=== PATIENT | female | born 2000 | race Caucasian/White ===

== ENCOUNTER 2023-12-24 17:46 | Emergency (ER) | payer MEDICAID, SELFPAY ==
[2023-12-24 17:48] VITALS: BP 115/83; PULSE 104; RESP 16; TEMP 35.7; O2SAT 99; BMI 33.9
--- NOTE | 2023-12-24 19:00 | US_ITS ---
EXAM: US SECOND OR THIRD TRIMESTER , TRANSABDOMINAL CLINICAL INDICATION: bleeding in TECHNIQUE: Transabdominal obstetrical ultrasound of the maternal pelvis and a second or third trimester with image documentation. COMPARISON: No relevant prior studies available. FINDINGS: FETUS: There is an intrauterine gestation. HEART RATE: heart rate is 155 bpm. PRESENTATION: The fetus is in cephalic infiltration. PLACENTA: Placenta is posterior. No placenta previa. No abruption. AMNIOTIC FLUID: Unremarkable. ANATOMY: See below. BIOMETRICS GESTATIONAL AGE: Gestational age 15 weeks 1 day. MARGOTH: Estimated date of delivery by ultrasound is 06/15/2024. EFW: Estimated weight 109 g. BPD: Biparietal diameter is 3.0 cm age 15 weeks 4 days, 66th percentile. HC: Head circumference 11.5 cm age 15 weeks 4 days, 57th percentile. AC: Abdominal circumference 8.5 cm age 14 weeks 6 days, 42nd percentile. FL: Femur length 1.6 cm age 14 weeks 6 days, 32nd percentile. MATERNAL: UTERUS: Unremarkable. No myometrial mass. CERVIX: Unremarkable as visualized. The cervix is closed. ADNEXA: Unremarkable. No adnexal masses. FREE FLUID: None. US/OB Limited With Biometrics IMPRESSION: Intrauterine gestation with an average ultrasound age of 15 weeks 2 days and ultrasound estimated due date of 06/14/2024. heart rate is 155 bpm. Electronically Signed: Javon Garrett MD at 19:57 EST ,
--- NOTE | 2023-12-24 19:15 | ED.VIS.FEGU ---
HPI <ABHIJIT Julien - Last Filed: 12/24/23 21:37> HPI - Female History of Present Illness Chief Complaint: Vag Bld, Preg Narrative Narrative: 22-year-old female A2 is approximately 15 weeks and 2 hours ago developed lower abdominal cramping and pink spotting when she wipes with toilet paper. She states she is otherwise not bleeding and has not had to wear a panty liner or pad. No fever, chills, nausea or vomiting, dysuria or vaginal discharge. She has 2 prior first trimester miscarriages. During this she had an episode of heavy bleeding and has had 2 normal ultrasounds. She states today's pink tinge is very light compared to that. She has an [facility]EL [facility]ATER in [place] but moved to [place] 2 weeks ago and would like to establish with someone here. PFSH <ABHIJIT Julien - Last Filed: 12/24/23 21:37> PFS Medical History Anxiety Asthma Bipolar disorder Depression Migraines Miscarriage Smoker Home Medications docosahexaenoic acid 200 mg capsule ( DHA) 200 mg PO DAILY 12/24/23 [History Last Taken Unknown] Allergy/AdvReac Type Severity Reaction Status Date / Time No Known Allergies Allergy Verified 12/24/23 17:49 Surgical History (Updated 12/24/23 @ 21:23 by Myah Tatum) H/O adenoidectomy Social History Smoking Status: Current every day smoker tobacco type: e-cigarettes ROS <ABHIJIT Julien - Last Filed: 12/24/23 21:37> ROS ED ROS Narrative Constitutional: Negative for fever, chills, malaise. CVS: Negative for chest pain, syncope. Respiratory: Negative for shortness of breath. GI: Positive for abdominal cramping. No nausea, vomiting. : Negative for dysuria, frequency. EXAM <ABHIJIT Julien Last Filed: 12/24/23 21:37> Physical Exam Narrative Exam Narrative: CONST: Patient sitting in no acute distress. EYES: Normal inspection. NECK: Normal inspection. RESP: No respiratory distress, CTAB. CVS: Regular rate and rhythm, no murmur, no gallop. ABD: Soft and nontender, no guarding or rebound, nondistended. SKIN: Color normal, no rash, warm, dry, intact. EXTREMITIES: Normal appearance, no pedal edema. NEURO: Oriented x4. PSYCH: Normal affect. Const Vital Signs: 12/24/23 17:48 12/24/23 20:04 Temperature 96.3 F L 98.6 F Temperature Source Temporal Oral Pulse Rate 104 H 83 Respiratory Rate 16 16 Blood Pressure 115/83 H 119/76 Blood Pressure Mean 93 90 Pulse Ox 99 98 Oxygen Delivery Method Room Air Room Air <Dr. Danyel Riley DO - Last Filed: 12/24/23 22:03> Physical Exam Const Vital Signs: 12/24/23 17:48 12/24/23 20:04 Temperature 96.3 F L 98.6 F Temperature Source Temporal Oral Pulse Rate 104 H 83 Respiratory Rate 16 16 Blood Pressure 115/83 H 119/76 Blood Pressure Mean 93 90 Pulse Ox 99 98 Oxygen Delivery Method Room Air Room Air MDM <ABHIJIT Julien - Last Filed: 12/24/23 21:37> [facility] MDM Narrative Medical decision making narrative: History gathered from: Patient and parent Patient is approximately 15 weeks and has lower abdominal cramping and light pink spotting. She has already had confirmed IUP. She appears well and nontoxic and is stable vital signs. Abdomen is soft and nontender. CBC and BMP are within normal limits. Hemoglobin is 12.9. hCG quant is 41,998. Blood type is B+ so she does not need RhoGAM. UA is negative for infection. Transabdominal ultrasound shows IUP at 15 weeks, 2 days with heart rate of 155 bpm. I discussed the case with on-call [facility] who states there is no further emergent intervention and recommended pelvic rest and follow-up with their office next week. Patient was comfortable with this plan and discharged in stable condition. Lab Data Attestation: I reviewed the patient's lab results. Labs: Laboratory Results - last 24 hr 12/24/23 12/24/23 19:45 19:55 WBC 10.2 RBC 4.70 Hgb 12.9 Hct 40.5 MCV 86.2 MCH 27.4 MCHC 31.9 L RDW Std Deviation 41.7 RDW Coeff of José 13.4 Plt Count 369 MPV 10.3 Immature Gran % (Auto) 0.500 Neut % (Auto) 64.9 Lymph % (Auto) 25.9 Marathon % (Auto) 7.5 Eos % (Auto) 0.8 Baso % (Auto) 0.4 Absolute Neuts (auto) 6.6 Absolute Lymphs (auto) 2.65 Nucleated RBC % 0 Sodium 141 Potassium 3.8 Chloride 112 H Carbon Dioxide 23.0 Anion Gap 6 BUN 8 Creatinine 0.54 L Estim Creat Clear Calc 165.72 Est GFR (MDRD) Af Amer 182 Est GFR (MDRD) Non-Af 150 BUN/Creatinine Ratio 14.8 Glucose 82 Calcium 9.7 HCG, Quant 11186 H Urine Color Yellow Urine Clarity Sl. Cloudy Urine pH 6.0 Ur Specific Wilton 1.025 Urine Protein Negative Urine Glucose (UA) Normal Urine Ketones 5 H Urine Occult Blood Negative Urine Nitrite Negative Urine Bilirubin Negative Urine Urobilinogen Normal Ur Leukocyte Esterase 25 H Urine RBC 0 SEEN Urine WBC 0-5 SEEN Ur Squamous Epith Cells 0-5 SEEN Urine Bacteria 1+ Urine Mucus RARE Blood Type B POSITIVE Radiography Diagnostic Testing: Clinical Impression(s) from Imaging Studies Obstetrics Ultrasound 12/24/23 19:00 IMPRESSION: Intrauterine gestation with an average ultrasound age of 15 weeks 2 days and ultrasound estimated due date of 06/14/2024. heart rate is 155 bpm. Electronically Signed: Javon Garrett MD at 19:57 EST , <Dr. Danyel Riley, DO - Last Filed: 12/24/23 22:03> [facility] Lab Data Labs: Laboratory Results - last 24 hr 12/24/23 12/24/23 19:45 19:55 WBC 10.2 RBC 4.70 Hgb 12.9 Hct 40.5 MCV 86.2 MCH 27.4 MCHC 31.9 L RDW Std Deviation 41.7 RDW Coeff of José 13.4 Plt Count 369 MPV 10.3 Immature Gran % (Auto) 0.500 Neut % (Auto) 64.9 Lymph % (Auto) 25.9 Marathon % (Auto) 7.5 Eos % (Auto) 0.8 Baso % (Auto) 0.4 Absolute Neuts (auto) 6.6 Absolute Lymphs (auto) 2.65 Nucleated RBC % 0 Sodium 141 Potassium 3.8 Chloride 112 H Carbon Dioxide 23.0 Anion Gap 6 BUN 8 Creatinine 0.54 L Estim Creat Clear Calc 165.72 Est GFR (MDRD) Af Amer 182 Est GFR (MDRD) Non-Af 150 BUN/Creatinine Ratio 14.8 Glucose 82 Calcium 9.7 HCG, Quant 53838 H Urine Color Yellow Urine Clarity Sl. Cloudy Urine pH 6.0 Ur Specific Wilton 1.025 Urine Protein Negative Urine Glucose (UA) Normal Urine Ketones 5 H Urine Occult Blood Negative Urine Nitrite Negative Urine Bilirubin Negative Urine Urobilinogen Normal Ur Leukocyte Esterase 25 H Urine RBC 0 SEEN Urine WBC 0-5 SEEN Ur Squamous Epith Cells 0-5 SEEN Urine Bacteria 1+ Urine Mucus RARE Blood Type B POSITIVE Radiography Diagnostic Testing: Clinical Impression(s) from Imaging Studies Obstetrics Ultrasound 12/24/23 19:00 IMPRESSION: Intrauterine gestation with an average ultrasound age of 15 weeks 2 days and ultrasound estimated due date of 06/14/2024. heart rate is 155 bpm. Electronically Signed: Javon Garrett MD at 19:57 EST , Treatment and Re-Evaluation Narrative: ED attending note: I evaluated the patient in conjunction with the ZARA. I agree with his/her statements and above findings. I have personally performed a face to face assessment of the patient and have reviewed the ZARA Note. I performed a substantive portion of the visit including all aspects of the following. I personally saw the patient performed chart review, physical exam, reviewed labs, imaging (if obtained), and formulated a treatment and management plan. This note was generated with [employer] dictation software. It may contain incorrect words, spelling, and punctuation that were not noted in review of the chart prior to signing. Discharge Plan Triage Chief Complaint: Vag Bld, Preg ED Midlevel Provider: Vivi Barton ED Provider: Danyel Riley Dx/Rx/DC Orders Clinical Impression: Threatened miscarriage Instructions: Miscarriage Threatened Prescriptions: No Action DHA 200 mg capsule 200 mg PO DAILY Primary Care Provider: Care Physician,No Primary Referrals: Amie Buck MD [Med Staff - Active Staff] - NOT,DEFINED [Non-Staff] - Activity Restrictions/Additional Instructions: Today your ultrasound showed a 15-week, 2-day with a normal heartbeat. Whenever you have bleeding during this is called a threatened miscarriage which means if you continue to have significant bleeding you could develop a miscarriage. Take Tylenol as needed for pain and have pelvic rest which means do not insert anything into the vagina such as a tampon or having sex. Please call the [facility] office for an appointment. Disposition Disposition: Home, Self Care
[2023-12-24 19:53] LABS: Absolute Lymphocyte Count 2.65 X10^3/uL (0.83-4.51); Absolute Neutrophil Count 6.6 X10^3/uL (2.0-7.7); Basophil# 0.04 X10^3/uL; Basophil% 0.4 % (0-1); Eosinophil# 0.08 X10^3/uL; Eosinophils% 0.8 % (0-5); Hematocrit 40.5 % (37-47); Hemoglobin 12.9 g/dL (12.0-15.0); Lymphocyte # 2.65 X10^3/ul (0.83-4.51); Lymphocyte % 25.9 % (19-41); Mean Corp Hgb Conc 31.9 g/dL (32-36); Mean Corpuscular Hgb 27.4 pg (27.0-32.0); Mean Corpuscular Volume 86.2 fL (81-99); Mean Platelet Vol. 10.3 fl (6.2-12.0); Monocyte# 0.77 X10^3/uL; Monocyte% 7.5 % (0-10); NRBC Flagged by Analyzer 0 % (0-5); Neutrophil # 6.64 X10^3/uL (2.7-7.7); Neutrophil % 64.9 % (47-70); Platelet Count 369 K/mm3 (150-450); RBC Distribution Width CV 13.4 % (11.6-14.6); RBC Distribution Width SD 41.7 fl (35.1-43.9); White Blood Count 10.2 K/mm3 (4.4-11.0)
[2023-12-24 20:02] LABS: Red Blood Cells-Urine 0 SEEN /hpf (0-5)
[2023-12-24 20:04] VITALS: BP 119/76; PULSE 83; RESP 16; TEMP 37; O2SAT 98
[2023-12-24 20:04] LABS: Color, Urine Yellow (Yellow); Glucose, Dipstick Normal (Normal); Ketone-Dipstick 5 mg/dl (Negative); Leukocyte Esterase-Dipstick 25 /ul (Negative); Nitrite-Dipstick Negative (Negative); Occult Blood-Urine Negative /ul (Negative); Protein-Dipstick Negative (Negative); Specific Gravity, Urine 1.025 (1.002-1.030); Urine Bilirubin Dipstick Negative (Negative); Urine Clarity Sl. Cloudy (Clear); Urine Urobilinogen Normal (Normal)
[2023-12-24 20:10] LABS: Anion Gap 6 (5-15); BUN 8 mg/dL (7-18); BUN/Creat Ratio 14.8 RATIO (10-20); Calcium,Total 9.7 mg/dL (8.5-10.1); Chloride 112 mmol/L (98-107); Creatinine, Serum 0.54 mg/dL (0.55-1.02); EST Glomerular Filtration Rate 150 mL/min (>60); Est Glom Filt Rate - Afr Amer 182 mL/min (>60); Estimated Creatinine Clearance 165.72 ml/min; Glucose 82 mg/dL (74-106); Potassium 3.8 mmol/L (3.5-5.1); Sodium Level 141 mmol/L (136-145)
[2023-12-24 20:40] LABS: hCG Titer Quant., Serum 41998 mIU/mL (1-3)
[2023-12-24 20:48] LABS: Bacteria 1+ /hpf (None Seen); Squamous Epithelial Cells - UA 0-5 SEEN /hpf (5-10); White Blood Cells 0-5 SEEN /hpf (0-5)
[2023-12-24 20:49] LABS: Mucous, Urine RARE /hpf (<or=2+)
[2023-12-24 21:42] VITALS: BP 120/76; PULSE 64; RESP 12; TEMP 36.4; O2SAT 99
== END 2023-12-24 21:44 | disposition home or self-care (01) ==
PROVIDERS: Physician Assistant; Emergency Provider Emergency Medicine; Visit Provider Emergency Medicine
DX: O20.0 Threatened abortion (principal); O26.852 Spotting complicating pregnancy, second trimester; F17.290 Nicotine dependence, other tobacco product, uncomplicated; Z3A.15 15 weeks gestation of pregnancy; O99.332 Smoking (tobacco) complicating pregnancy, second trimester; O99.512 Diseases of the respiratory system complicating pregnancy, second trimester; J45.909 Unspecified asthma, uncomplicated
CPT/HCPCS: 76816; 80048; 81001; 84702; 85025; 86900; 86901; 99283; A4216

== ENCOUNTER 2024-01-04 19:52 | Observation (INO) | payer MEDICAID, SELFPAY ==
[2024-01-04] VITALS (7 sets, daily range): BP systolic 91–126; BP diastolic 60–84; PULSE 74–104; RESP 15–20; TEMP 36.6–37.1; O2SAT 97–99; BMI 35.6
[2024-01-04] MEDS: 0.9% Normal Saline (1000mL) 1,000 ML 1000 ML IV (20:00)
--- NOTE | 2024-01-04 20:28 | US_ITS ---
We are attempting to reach an attending provider to discuss findings. An addendum with communication details will be sent when the communication is complete. EXAM: US , LIMITED CLINICAL INDICATION: 2nd trimester with gush of fluid TECHNIQUE: Real-time limited ultrasound of the maternal uterus with image documentation. COMPARISON: 12/24/2023 FINDINGS: GESTATIONAL AGE: Estimated gestational age: 15 weeks, 5 days. EFW: Estimated weight: 127 g (2.6%). BPD: 3.22 cm. HC: 12.75 cm. AC: 9.50 cm. FL: 1.79 cm. POSITION: Breech presentation. HEART RATE: heart rate: 157 bpm. PLACENTA: Posterior placenta. AMNIOTIC FLUID: No significant abnormality. No measurable amniotic fluid is identified. CERVIX: The cervix is closed measuring 3 cm. US/OB Limited With Biometrics IMPRESSION: Anhydramnios. Recommend SUPERVISOR [employer] consultation. Electronically Signed: Conner Patel DO at 21:13 EST ,
--- NOTE | 2024-01-04 20:30 | ED.VIS.FEGU ---
HPI HPI - Female History of Present Illness Chief Complaint: Vag Bld, Preg Detail of Chief Complaint: No vaginal bleeding. Second trimester with gush of fluid. Informant: patient Pain Pain: Positive for Pelvic Pain Onset: Today Context: Sudden Onset Timing: Continuous Quality: Positive for Cramping Current Severity: Mild Maximum Severity: Mild Bleeding Issue: Negative for Vaginal bleeding, Passing clots or Passing tissue Vaginal Discharge Onset: Today Associated Symptoms Associated Symptoms: Negative for Dysuria, Frequency, Urgency or Hematuria Test: Positive P: 0 Ab: 2 Narrative Narrative: 23-year-old female G3, P0 Ab2 with those being miscarriages at 7 and 12 weeks approximately. She was seen on the had an ultrasound done this time showing a single live IUP at 15 weeks and 2 days. With a heart rate of 155. And a due date June 14. She now presents with pelvic cramping and a gush of fluid but not bleeding. Denies any dysuria or fever. Her other 2 pregnancies did make it this far. Prior similar symptoms: Yes Recent Illness/Hospitalization: No PFSH PFSH Medical History Anxiety Asthma Bipolar disorder Depression Migraines Miscarriage Smoker Home Medications docosahexaenoic acid 200 mg capsule ( DHA) 200 mg PO DAILY 12/24/23 [History Last Taken Unknown] Allergy/AdvReac Type Severity Reaction Status Date / Time No Known Allergies Allergy Verified 12/24/23 17:49 Surgical History H/O adenoidectomy Social History Smoking Status: Current every day smoker tobacco type: e-cigarettes ROS ROS ED ROS Narrative Pelvic cramping. Gush of fluid. Review of Systems ROS Unobtainable: Denies due to encephalopathy Constitutional Constitutional ED: Denies chills or fever(s) Eyes Eyes: Denies blurry vision ENT ENT ED: Denies ear pain, rhinorrhea or sore throat Cardiovascular Cardiovascular: Denies chest pain, palpitations or racing heartbeat Respiratory/Chest Respiratory/Chest: Denies cough, dyspnea or dyspnea on exertion Gastrointestinal Gastrointestinal: Denies abdominal pain, constipation, diarrhea, melena, nausea or vomiting Genitourinary Genitourinary ED: Denies dysuria or hematuria Musculoskeletal Musculoskeletal: Denies arthralgias, myalgias or neck pain Integumentary Denies abscess or Abrasions Neurologic Neurologic: Denies headache(s) Psychiatric Psychiatric: Denies anxiety or depression Endocrine Endocrinology: Denies heat intolerance Hematologic/Lymphatic Hematologic/Lymphatic: Denies easy bleeding, easy bruising or lymphadenopathy Allergic/Immunologic Allergic/Immunologic ED: Denies mouth swelling, tongue swelling or urticaria EXAM Physical Exam Narrative Exam Narrative: 23-year-old female vital signs stable afebrile. Initial blood pressure was low at 91/69. She will be given a liter of fluid. H EENT exam unremarkable. Neck nontender. Lungs clear to auscultation bilaterally. Heart regular rhythm rate about 90 no murmur. Abdomen soft nontender tender. No peritoneal signs. Gravid uterus. Moving all 4 extremities. Nontender no edema. Neurologically she is awake and alert with no focal motor deficits. Const Vital Signs: 01/04/24 19:53 01/04/24 20:00 01/04/24 21:06 Temperature 98.5 F 98.5 F 98.1 F Temperature Source Oral Oral Oral Pulse Rate 104 H 92 101 H Respiratory Rate 15 20 H 19 H Blood Pressure 91/69 91/69 Blood Pressure Mean 76 76 Pulse Ox 98 97 99 Oxygen Delivery Method Room Air Room Air Room Air Positive well nourished and well developed; Negative for obese, cachectic, contractures or unkempt General Appearance ED: well developed and NAD; Negative for unkempt, cachectic, contractures, odor of alcohol detected or pallor Nutritional Appearance: Negative for cachectic or obese HEENT Reports moist mucous membranes Negative for trauma or tenderness Eyes PERRL and EOMs intact bilaterally General Eye ED: Negative for pale conjunctiva or scleral icterus Neck no lymphadenopathy, supple and no JVD General: Negative for other Thyroid: Negative for tender Lymph Lymphatic: Negative for other Chest Wall inspection of chest normal and palpation of chest normal Chest: Negative for other Resp normal respiratory effort and clear to auscultation bilaterally Effort and Inspection: Negative for pain with movement Auscultation: Negative for rales, rhonchi, wheezes or diminished lung sounds Cardio regular rate, regular rhythm, S1 normal heart sound, no murmurs and no JVD Rate: Negative for bradycardia or tachycardic Rhythm: Negative for abnormal rhythm GI normal to inspection, nondistended, normoactive bowel sounds, soft to palpation, non-tender, non-distended and no masses Auscultation: normoactive bowel sounds Palpation: Negative for tender, guarding or rigid Back/Spine no CVA tenderness General Back: Negative for CVA tenderness Cervical Spine: Negative for cervical spine tenderness Thoracic Spine / Upper Back: Negative for thoracic spinal tenderness Lumbar Spine / Lower Back: Negative for lumbar spinal tenderness Sacrum: Negative for other Extremity normal to inspection and full ROM General Extremety ED: Negative for edema or tenderness General Extremity: Negative for edema Neuro oriented x3 and CN's II-XII intact bilaterally Sensorium / Orientation: alert, oriented to person, oriented to place and oriented to time; Negative for confused, lethargic or stuporous Motor Exam: strength 5/5 throughout Psych mental status grossly normal Appearance: Negative for unkempt Attitude: No agitated Speech: No other Mood & Affect: Negative for depressed, anxious or tearful Skin no rashes or lesions noted and no wounds General Skin Exam: Negative for jaundice or pallor Rashes: No rashes noted Trauma: Negative for other MDM MDM MDM Narrative Medical decision making narrative: 23-year-old female Ab2 it does both a miscarriages in the first trimester. Presents today with a gush of fluid and pelvic cramping. Ultrasound being obtained. Her blood type is B+. She is having no urinary symptoms. Due to her hypotension she will be treated with IV fluids. Repeat exam patient currently blood pressure is much improved at 119/74. I discussed test results with her and her mom. She understands that this means that she will have a miscarriage. I spoke to Dr. Junior Johnson on-call for [employer] for no doc. She recommends induction. Patient and mom are on board. Plan will be to admit her for induction. I did do a pelvic exam. Patient had no vaginal bleeding. No blood in the vaginal vault. There was a small amount of what appeared to be amniotic fluid in the vaginal vault. History & Record Review Discussion w/independent historian: Patient Additional record(s) reviewed:: Prior inpatient record, Prior outpatient record, Prior ED visit and Prior labs Lab Data Attestation: I reviewed the patient's lab results. Lab results narrative: Blood type previously done was be positive. Ultrasound today per the studio technician, this was a transvaginal pelvic ultrasound showed a heartbeat of 157. 15 weeks and 5 days by ultrasound. But they saw no amniotic fluid. Radiography Diagnostic Testing: Clinical Impression(s) from Imaging Studies Obstetrics Ultrasound 01/04/24 20:28 IMPRESSION: Anhydramnios. Recommend [employer] SUPERVISOR consultation. Electronically Signed: Conner Patel DO at 21:13 EST , Discharge Plan Triage Chief Complaint: Vag Bld, Preg ED Provider: Ananda Garcia Dx/Rx/DC Orders Clinical Impression: Threatened miscarriage, Premature rupture of membranes, Second trimester Prescriptions: No Action DHA 200 mg capsule 200 mg PO DAILY Primary Care Provider: Care Physician,No Primary Referrals: Care Physician,No Primary [Primary Care Provider] - Disposition Disposition: Acute Care Hospital [facility]
[2024-01-04 22:13] LABS: Absolute Lymphocyte Count 3.81 X10^3/uL (0.83-4.51); Absolute Neutrophil Count 7.6 X10^3/uL (2.0-7.7); Basophil# 0.03 X10^3/uL; Basophil% 0.2 % (0-1); Eosinophil# 0.08 X10^3/uL; Eosinophils% 0.6 % (0-5); Lymphocyte # 3.81 X10^3/ul (0.83-4.51); Lymphocyte % 30.3 % (19-41); Mean Corp Hgb Conc 31.6 g/dL (32-36); Mean Corpuscular Hgb 27.5 pg (27.0-32.0); Mean Corpuscular Volume 87.2 fL (81-99); Mean Platelet Vol. 10.8 fl (6.2-12.0); Monocyte# 1.03 X10^3/uL; Monocyte% 8.2 % (0-10); NRBC Flagged by Analyzer 0 % (0-5); Neutrophil # 7.55 X10^3/uL (2.7-7.7); Neutrophil % 60.1 % (47-70); Platelet Count 392 K/mm3 (150-450); RBC Distribution Width CV 13.6 % (11.6-14.6); RBC Distribution Width SD 42.7 fl (35.1-43.9); Red Blood Count 4.36 M/mm3 (4.2-5.4); White Blood Count 12.6 K/mm3 (4.4-11.0)
[2024-01-04 22:33] LABS: Anion Gap 4 (5-15); BUN 4 mg/dL (7-18); BUN/Creat Ratio 7.3 RATIO (10-20); Calcium,Total 9.6 mg/dL (8.5-10.1); Chloride 112 mmol/L (98-107); Creatinine, Serum 0.54 mg/dL (0.55-1.02); EST Glomerular Filtration Rate 148 mL/min (>60); Est Glom Filt Rate - Afr Amer 180 mL/min (>60); Estimated Creatinine Clearance 168.66 ml/min; Glucose 92 mg/dL (74-106); Potassium 3.7 mmol/L (3.5-5.1); Sodium Level 139 mmol/L (136-145)
--- NOTE | 2024-01-04 23:30 | PCM.HP.OB ---
HPI - General General Date of Admission: 01/04/24 Date of Service: 01/04/24 HPI Narrative DONNIE JUNG, is a 23 F who presented to the ED with a gush of fluid. She also reports pelvic cramping but denies vaginal bleeding. Patient was seen on the December 24 in the ED and had an ultrasound done this time showing a single live IUP at 15&2. Denies any dysuria or fever. Her prior pregnancies were miscarriages at 7 and 12 weeks. Maternal Data Information Final MARGOTH: 06/14/24 Gestational age: 16&6 PFSH PFSH Medical History Anxiety Asthma Bipolar disorder Depression Migraines Miscarriage Smoker Home Medications docosahexaenoic acid 200 mg capsule ( DHA) 200 mg PO DAILY 12/24/23 [History Last Taken Unknown] Allergy/AdvReac Type Severity Reaction Status Date / Time No Known Allergies Allergy Verified 01/05/24 01:33 Surgical History H/O adenoidectomy Social History Smoking Status: Current some day smoker tobacco type: e-cigarettes History Elective abortions Hx Para 0 Spontaneous abortions Hx # Term Pregnancies Ectopic pregnancies Hx # Pregnancies Multiple births # of living children Vital Signs Vital Signs Vital Signs: 01/04/24 19:53 01/04/24 20:00 01/04/24 21:06 Temperature 98.5 F 98.5 F 98.1 F Temperature Source Oral Oral Oral Pulse Rate 104 H 92 101 H Respiratory Rate 15 20 H 19 H Blood Pressure 91/69 91/69 Blood Pressure Mean 76 76 BP Systolic BP Diastolic Pulse Ox 98 97 99 Oxygen Delivery Method Room Air Room Air Room Air 01/04/24 21:00 01/04/24 22:00 01/04/24 22:36 Temperature 98.7 F 98.1 F 98 F Temperature Source Temporal Temporal Pulse Rate 99 98 98 Respiratory Rate 16 16 16 Blood Pressure 114/74 119/84 H 119/78 Blood Pressure Mean 87 95 91 BP Systolic BP Diastolic Pulse Ox 98 98 99 Oxygen Delivery Method Room Air Room Air 01/04/24 22:53 01/04/24 22:53 01/04/24 22:53 Temperature Temperature Source Pulse Rate 74 Respiratory Rate Blood Pressure 126/60 H Blood Pressure Mean BP Systolic 126 BP Diastolic 60 Pulse Ox 97 Oxygen Delivery Method Weight Weight: 194 lb 10.691 oz Body Mass Index (BMI) 35.6 Physical Exam Const alert and oriented x3 General Appearance: anxious Resp normal respiratory effort GI soft to palpation, non-tender and non-distended Inspection: gravid external exam normal Narrative: SSE - cervix visually 1-2 cm (confirmed when cytotec placed) Labs Labs Labs: Blood Type B POSITIVE Antibody Screen NEGATIVE Hct 38.0 % (37-47) Hgb 12.0 g/dL (12.0-15.0) Obstetrics Ultrasound Syphilis Total Ab Non-reactive Rhogam given: No Assessment & Plan (1) premature rupture of membranes (PPROM) delivered, current hospitalization: COMMENT: 23yo @ 16&6 by dates and 15&5 by US (2) Anhydramnios in second trimester: QUALIFIERS: Fetus number: single or unspecified fetus Qualified Code(s): O41.02X0 - Oligohydramnios, second trimester, not applicable or unspecified PLAN: Plan Patient has been counseled extensively on R/B/A of management options. It has been reviewed that formal ultrasound shows no amniotic fluid and confirms PPROM. Patient is aware that the fetus will not survive until viability. Any continuation of the would put the patient at high risk of infection & possible . Thus in my reasonable medical judgment, an augmentation is needed with the intent to prevent the of this woman and to prevent a serious risk of the substantial and irreversible impairment of a major bodily function to this woman. ? Induction - plan for cytotec 600mcg vaginally Pain - discussed options of epidural and IV pain meds Obtain records from [facility] All questions answered & patient agrees with plan
[2024-01-05] VITALS (20 sets, daily range): BP systolic 102–121; BP diastolic 56–75; PULSE 60–91; RESP 18; TEMP 36.9–37.1; O2SAT 97–100
--- NOTE | 2024-01-05 | PLAC_PTH ---
PATHOLOGY RESULTS PATIENT: DONNIE JUNG LOC: [facility] U#:[id number] AGE/SX: ROOM: WP021 RE01/04/[address]: Dr. Graham Johnson MD : 2000 BED: 1 DIS: 01/05/2024 SPEC #: [id number] RECD: 01/05/24 09:19 STATUS: CALISTA HELENE #: [id number] OZZY: 01/05/24 00:[address]: Graham Johnson DEPT: SURGICAL PATHOLOGY RECD BY: Torin De Anda ENTERED: 01/05/24 09:19 SP TYPE: PLACENTA OTHR DR: No Primary Care Phys Tissues: Placenta, NOS Procedures: Surgery Specimen Level V HEADER OPERATION: Not noted PRE-OP DIAGNOSIS: Demise 15 weeks TISSUE SUBMITTED: Placenta MICROSCOPIC DIAGNOSIS [place] placenta, 15 weeks (81 gm): Umbilical cord - trivascular with no inflammation. Placental membranes - mild acute deciduitis. Placental disc - immature villi consistent with age. Increased intraparenchymal fibrin plaques. Organizing intraparenchymal hemorrhage and fibrinoid material. Focal Charles-Erwin change and mild chronic decidual inflammation. AM:flavia 01/07/2024 MICROSCOPIC DESCRIPTION Slides are reviewed. GROSS DESCRIPTION SPECIMEN: PLACENTA / CLINICAL INFORMATION: A. Weight: Unavailable B. Gestational Age: 15 weeks C. Sex: Unavailable PLACENTAL WEIGHT (POST FIXATION): 81 gm PLACENTAL DIMENSIONS: 9.5 x 7.0 x 2.2 cm PLACENTAL SHAPE: Usual ovoid PLACENTAL WEIGHT FOR GESTATIONAL AGE: Within 10-99th percentile MEMBRANES - Present A. Insertion: Marginal B. Site of rupture from edge: At edge of placental disc C. Color of membrane: Zacarias-jensen D. Abnormalities: None UMBILICAL CORD - Present A. Color: Zacarias-jensen B. Insertion: Near central C. Length: 11.0 cm D. Diameter: 0.7 cm E. Number of vessels: Three F. Abnormalities: None PLACENTAL DISC - Present A. Color of surface: Zacarias-jensen B. surface abnormalities: None C. Maternal cotyledons: Intact with minimal tears D. Attached retro placental clot: No clot E. Cut surface: Dark red and spongy F. Lesions: None G. Separate clot: Absent SECTIONS SUBMITTED: 1. Umbilical cord ( end notched) 2. Umbilical cord, placental end 3. Membrane roll 4. Placental disc, and maternal surfaces 5. Placental disc, and maternal surfaces 6. Placental disc, and maternal surfaces AM:flavia 01/06/2024 TC:2 CPT: 60612
[2024-01-05] MEDS: miSOPROStol 200 MCG Tablet 600 MCG VAGINAL (00:10)
[2024-01-05 00:54] LABS: Syphilis Antibodies Non-reactive
[2024-01-05] MEDS: 0.9% Saline Lock 10 ML Syringe IV (00:55)
[2024-01-05] MEDS: DiphenhydrAMINE 50 MG/ML Syringe IV (00:55)
[2024-01-05] MEDS: HYDROmorphone 1 MG/ML Syringe IV (00:56)
[2024-01-05] MEDS: Oxytocin 15 Units/NS 250ml 15 UNITS/250 ML IV.SOLN 83 UNITS IV (04:05)
--- NOTE | 2024-01-05 04:28 | EX.PCM.OBRPT ---
Maternal Data Information Final MARGOTH: 06/14/24 Gestational age: 17 weeks Vaginal Delivery Maternal Presentation Maternal Presentation: Medically Indicated Induction Type of Induction: Cytotec Operative Information Date of Procedure: 01/05/24 Pre-Operative Diagnosis: (1) PPROM (2) Inevitable Post-Operative Diagnosis: Same Surgery / Procedure Performed: Spontaneous Vaginal Delivery Type of Anesthesia: None Estimated Blood Loss: 100ml Findings Description of Procedure: Patient precipitously delivered. 3VC clamped & cut. No traction placed on umbilical cord. 35 minutes later the placenta delivered spontaneously and was intact. Good uterine tone obtained. Presentation: Footling Breech Amniotic Membrane Rupture Type: Spontaneous Amniotic Fluid Description: Clear Placental Delivery Description: Spontaneous Placenta Disposition: Sent to Pathology Specimen(s) Removed: Placenta Cord Vessel Description: 3 Vessels Cord Entanglement: None A Gender: Female (1 minute): 0 (17 week demise at delivery) (5 minute): 0 Delayed Cord Clamping: No Post Vaginal Delivery Medications Given After Delivery: IV Pitocin and IM Pitocin Episiotomy Description: None Laceration: None Complication Complications: None
[2024-01-05 06:40] LABS: Pathology Specimen OB SEE PATHOLOGY REPORT
--- NOTE | 2024-01-05 07:59 | NURSING ---
Infant weighed 0.120kg 4.2 ounce 7 inches long
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
[2024-01-05] MEDS: Methylergonovine 0.2 MG/ML Ampul 0.200000000000000011 MG IM (12:51)
--- NOTE | 2024-01-05 13:32 | NURSING ---
1305-called spoke tiffany Hutchins from [facility], regarding delivered and family wanting to use their services. plan for [facility] to call floor back when ready to come this direction. 1322-ekta from [facility] called back, mom ok with them coming now to get baby.
--- NOTE | 2024-01-11 10:48 | NURSING ---
F/up phone call performed. Pt denies any questions or concerns. States she is still having scant lochia. Feels okay, denies signs or symptoms of complications. Pt. reports she has been able to eat and drink okay, and is sleeping. Denies needs at this time. Pt. informed if she ever has questions or concerns she can always call in.
== END 2024-01-05 16:34 | disposition home or self-care (01) ==
LOC: ED 21:33 → WP 01-05 01:25
PROVIDERS: Admitting Provider Obstetrics & Gynecology; Emergency Provider Emergency Medicine; Visit Provider Obstetrics & Gynecology
DX: O02.1 Missed abortion (principal); O42.912 Preterm premature rupture of membranes, unspecified as to length of time between rupture and onset of labor, second trimester; O41.02X0 Oligohydramnios, second trimester, not applicable or unspecified; O99.334 Smoking (tobacco) complicating childbirth; O62.3 Precipitate labor; Z3A.17 17 weeks gestation of pregnancy; F17.290 Nicotine dependence, other tobacco product, uncomplicated
CPT/HCPCS: 59409; 99281; 59050; 76815; 76816; 80048; 85025; 86780; 86850; 86900; 86901; 88307; 96360; 96361; 96372; 99221; 99283; J7030; A4216; G0378

== ENCOUNTER 2024-01-17 20:54 | Emergency (ER) | payer MEDICAID, SELFPAY ==
[2024-01-17 20:54] VITALS: BP 138/96; PULSE 89; RESP 16; TEMP 36.7; O2SAT 97; BMI 35.8
--- NOTE | 2024-01-17 22:02 | US_ITS ---
ACR Level 3 findings have been noted. An addendum which confirms receipt of the report will follow. EXAM: US PELVIS TRANSVAGINAL CLINICAL INDICATION: increased discharge -- recent vaginal stillbirth TECHNIQUE: Transvaginal pelvic ultrasound was performed with grayscale and color Doppler imaging. Transvaginal imaging was used for better evaluation of the endometrium and adnexa. COMPARISON: Ultrasound, 01/04/2024. FINDINGS: UTERUS/CERVIX: The endometrium is heterogenous and thickened with mild increased vascular flow identified. Anteverted. There is no uterine mass. The uterus measures 8.7 x 6.3 x 5.3 cm. The endometrial stripe measures 2.3 cm in thickness. RIGHT OVARY: No significant abnormality. Blood flow is present in the right ovary. The right ovary measures 4.2 x 2.4 x 2.4 cm. LEFT OVARY: No significant abnormality. Blood flow is present in the left ovary. The left ovary measures 3.7 x 2.4 x 1.7 cm. FREE FLUID: Small amount of free fluid within the cul-de-sac. BLADDER: Debris identified within the urinary bladder. US/Transvaginal Non- IMPRESSION: 1. Although not definitive, findings may be indicative of retained products of conception. Given the clinical history of foul-smelling discharge, endometritis is also a consideration. Follow-up as clinically indicated. 2. Debris identified within the urinary bladder. Correlate for hematuria and/or evidence of infection. Electronically Signed: Conner Patel DO at 23:24 EDT ,
--- OUTSIDE RECORDS SUMMARY | 2024-01-17 22:21 | XMS RPT_ITS | CCD ---
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 Attending Unavailable NANDO RECIO M.D. Attending Unavailable VAN SOLIS Consulting Unavailable INDIRA BROWN Consulting Unavailable MD Martin Mckenna Emergency Provider Provider, No Primary Care Provider UnavailMAURICE Goldman Attending Provider [phone] MD Alex Lai Emergency Provider Unavailab le Provider, No Primary Care Unavailable Vivi Joseph Attending Unavailable Rex Hernadez Attending Unavailable Albert Cail Attending Unavailable SHANNAN PASTRANA DO Primary Care Physician Alex Lai Attending Unavailable Provider, No Primary Care Unavailable Provider, No Primary Care Unavailable Vivi Joseph Attending Unavailable Vivi Joseph Attending Unavailable Provider, No Primary Care Unavailable Provider, No Primary Care Unavailable Vivi Joseph Attending Unavailable Provider, No Primary Care Unavailable Martin Mckenna Attending Unavailable LANDRY RANDALL Referring Unavailable SALVADOR COBIAN Attending Unavailable [facility] Primary Care Physician Unavailab barrera [facility] Primary Care Unavailable JOSE PIZANO MD Attending Unavailable [facility] Primary Care Unavailable KARIS AGUIRRE Attending Unavailable SHANNAN PASTRANA DO Primary Care Unavailable FRIDA YOO MD Attending Unavailable SHANNAN PASTRANA DO Primary Care Unavailable GUILLAUME GUERRA Attending Unava ilable [facility] Primary Care Unavailable KALIN SYLVESTER DO Attending Unavailable [facility] Primary Care Unavailable KALIN SYLVESTER DO Attending Unavailable [facility] Primary Care Unavailable KALIN SYLVESTER DO Attending Unavailable [facility] Primary Care Unavailable KALIN SYLVESTER DO Attending Unavailable [facility] Primary Care Unavailable FRIDA YOO MD Attending Unavailable Medications Current Medications Medication Drug Class(es) Dates Sig (Normalized) Sig (Original) naproxen 500 mg oral tablet (2 sources) Nonsteroidal Anti-inflammatory Drug Start: 09-04-2023 End: 09-11-2023 naproxen 500 mg oral tablet Dose : 500 mg = 1 tab(s), Oral, BID, X 7 day(s), # 14 tab(s), 0 Refill(s), 09/11/23 12:05:00 AM EDT Start Date: 09/04/23 Stop Date: 09/11/23 Status: Ordered Completed/Discontinued Medications Medication Drug Class(es) Dates Sig (Normalized) Sig (Original) [id number] 200 actuat albuterol 0.09 mg/actuat metered dose inhaler (8 sources) beta2-Adrenergic Agonist Start: 08-17-2022 take 2 puff(s) by inhalation every four hours as needed albuterol HFA (PROVENTIL HFA, VENTOLIN HFA) 90 mcg/actuation inhaler Inhale 2 Puffs as instructed every 4 hours as needed. 6.7 g 0 08/17/2022 Active Problems Active Problems Problem Classification Problem Date Documented Da te Episodic/Chronic Abdominal pain (1 source) Pelvic and perineal pain; Translations: [Pelvic and perineal pain] Onset: 05-03-2023 Episodic Adjustment disorders (4 sources) Adjustment disorder with mixed anxiety and depressed mood; Translations: [Adjustment disorder with mixed anxiety and depressed mood] 04-30-2023 Chronic Contraceptive and procreative management (2 sources) Patient encounter status; Translations: [Encounter for other general counseling and advice on contraception] Episodic E Codes: Fall (1 source) Fall; Translations: [Unspecified fall, initial encounter] Onset: 07-20-2022 Episodic Essential hypertension (1 source) Essential hypertension; Translations: [Essential (primary) hypertension] Onset: 07-20-2022 Chronic Menstrual disorders (6 sources) Amenorrhea, unspecified; Translations: [Amenorrhea] Onset: 05-03-2023 06-24-2023 Chronic Nausea and vomiting (1 source) Vomiting Onset: 02-09-2023 Episodic Other complications of (2 sources) care for patient with recurrent loss, unspecified trimester; Translations: [ care for patient with recurrent loss, unspecified trimester] Onset: 11-22-2023 Episodic Other endocrine disorders (2 sources) Polycystic ovary syndrome 06-24-2023 Chronic Other female genital disorders (1 source) Abnormal uterine and vaginal bleeding, unspecified; Translations: [Abnormal uterine and vaginal bleeding, unspecified] Onset: 05-09-2023 Chronic Other female genital disorders (3 sources) H/O: miscarriage; Translations: [Recurrent loss] 05-03-2023 Episodic Other nutritional; endocrine; and metabolic disorders (2 sources) Obesity, unspecified; Translations: [Obesity, unspecified] Onset: 10-25-2023 Chronic Other and delivery including normal (3 sources) ; Translations: [Encounter for supervision of normal , unspecified, first trimester] Onset: 10-25-2023 10-21-2023 Episodic Past or Other Problems Problem Classification Problem Date Documented Da te Episodic/Chronic Administrative/social admission (5 sources) Persons encountering health services in other specified circumstances; Translations: [Other reasons for seeking consultation] Onset: 05-03-2023 05-03-2023 Episodic Other complications of (10 sources) Maternal tobacco use; Translations: [Smoking (tobacco) complicating , first trimester] Onset: 04-11-2021 04-11-2021 Episodic Other complications of (10 sources) Uterine leiomyoma; Translations: [Maternal care for benign tumor of corpus uteri, unspecified trimester] Onset: 04-11-2021 04-11-2021 Episodic Other female genital disorders (4 sources) Recurrent loss; Translations: [Recurrent loss without current ] Onset: 05-03-2023 05-03-2023 Episodic Suicide and intentional self-inflicted injury (1 source) Suicidal ideations; Translations: [Suicidal ideations] Onset: 04-30-2023 Episodic Results Test Name Value Interpretation Reference Range Facil ity Vital Signs Date Time Vital Sign Value Performing Clinician Faci lity 11-25-2023 20:59-0500 Diastolic Blood Pressure Non-Invasive 83 mm[Hg] JOSE PIZANO MD [facility] 11-25-2023 20:59-0500 Heart rate 93 /min JOSE PIZANO MD [facility] 11-25-2023 20:59-0500 Respiratory rate 18 /min JOSE PIZANO MD [facility] 11-25-2023 20:59-0500 Systolic Blood Pressure Non-Invasive 124 mm[Hg] JOSE PIZANO MD [address] [place] [address] 11-25-2023 16:23-0500 Body temperature 97.88 [degF] JOSE PIZANO MD [address] [place] [address] 11-25-2023 16:23-0500 Diastolic Blood Pressure Non-Invasive 84 mm[Hg] JOSE PIZANO MD [address] [place] [address] 11-25-2023 16:23-0500 Heart rate 110 /min JOSE PIZANO MD [address] [place] [address] 11-25-2023 16:23-0500 Respiratory rate 20 /min JOSE PIZANO MD [facility] 11-25-2023 16:23-0500 Systolic Blood Pressure Non-Invasive 120 mm[Hg] JOSE PIZANO MD [facility] 09-03-2023 22:16-0400 Blood Pressure Cuff Size FRIDA YOO MD [facility] 09-03-2023 22:16-0400 Blood Pressure Location FRIDA YOO MD [facility] 09-03-2023 22:16-0400 Blood Pressure Method FRIDA YOO MD [facility] 09-03-2023 22:16-0400 Body temperature 97.52 [degF] FRIDA YOO MD [facility] 09-03-2023 22:16-0400 Body weight 86.8 kg FRIDA YOO MD [facility] 09-03-2023 22:16-0400 Diastolic Blood Pressure Non-Invasive 89 1 FRIDA YOO MD [facility] 09-03-2023 22:16-0400 Heart rate 83 /min FRIDA YOO MD [facility] 09-03-2023 22:16-0400 Respiratory rate 16 /min FRIDA YOO MD [facility] 09-03-2023 22:16-0400 Systolic Blood Pressure Non-Invasive 128 1 FRIDA YOO MD [facility] 05-09-2023 13:15-0400 Body height 157.48 cm MD Martin Mckenna Work Phone: [facility] 05-09-2023 13:15-0400 Body mass index (BMI) [Ratio] 33.8 kg/m2 MD Martin Mckenna Work Phone: [facility] 05-09-2023 13:15-0400 Body temperature 98.7 [degF] MD Martin Mckenna Work Phone: [facility] 05-09-2023 13:15-0400 Body weight 83.92 kg MD Martin Mckenna Work Phone: [facility] 05-09-2023 13:15-0400 Diastolic blood pressure 79 mm[Hg] MD Martin Mckenna Work Phone: [facility] 05-09-2023 13:15-0400 Heart rate 74 /min MD Martin Mckenna Work Phone: [facility] 05-09-2023 13:15-0400 Respiratory rate 18 /min MD Martin Mckenna Work Phone: [facility] 05-09-2023 13:15-0400 SaO2% (BldA) [Mass fraction] 98 % MD Martin Mckenna Work Phone: [facility] 05-09-2023 13:15-0400 Systolic blood pressure 116 mm[Hg] MD Martin Mckenna Work Phone: [facility] 05-03-2023 09:53-0400 Body height 157.48 cm MD Martin Mckenna Work Phone: [facility] 05-03-2023 09:53-0400 Body mass index (BMI) [Ratio] 34 kg/m2 MD Martin Mckenna Work Phone: [facility] 05-03-2023 09:53-0400 Body temperature 97 [degF] MD Martin Mckenna Work Phone: [facility] 05-03-2023 09:53-0400 Body weight 84.37 kg MD Martin Mckenna Work Phone: [facility] 05-03-2023 09:53-0400 Diastolic blood pressure 81 mm[Hg] MD Martin Mckenna Work Phone: [facility] 05-03-2023 09:53-0400 Heart rate 71 /min MD Martin Mckenna Work Phone: [facility] 05-03-2023 09:53-0400 Respiratory rate 20 /min MD Martin Mckenna Work Phone: [facility] 05-03-2023 09:53-0400 Systolic blood pressure 118 mm[Hg] MD Martin Mckenna Work Phone: [facility] 04-30-2023 02:04-0400 Body height 157.48 cm MD Martin Mckenna Work Phone: [facility] 04-30-2023 02:04-0400 Body mass index (BMI) [Ratio] 34.5 kg/m2 MD Martin Mckenna Work Phone: [facility] 04-30-2023 02:04-0400 Body weight 85.73 kg MD Martin Mckenna Work Phone: [facility] 04-30-2023 01:53-0400 Body temperature 98.4 [degF] MD Martin Mckenna Work Phone: [facility] 04-30-2023 01:53-0400 Diastolic blood pressure 72 mm[Hg] MD Martin Mckenna Work Phone: [facility] 04-30-2023 01:53-0400 Heart rate 80 /min MD Martin Mckenna Work Phone: [facility] 04-30-2023 01:53-0400 Respiratory rate 18 /min MD Martin Mckenna Work Phone: [facility] 04-30-2023 01:53-0400 SaO2% (BldA) [Mass fraction] 98 % MD Martin Mckenna Work Phone: [facility] 04-30-2023 01:53-0400 Systolic blood pressure 125 mm[Hg] MD Martin Mckenna Work Phone: [facility] 08-22-2022 10:19-0400 Body height 157.5 cm Kiana Glasenapp PA-C Work Phone: [facility] 08-22-2022 10:19-0400 Body weight 80.74 kg Kiana Glasenapp PA-C Work Phone: [facility] 08-22-2022 10:19-0400 Diastolic blood pressure 60 mm[Hg] Kiana Glasenapp PA-C Work Phone: [facility] 08-22-2022 10:19-0400 Systolic blood pressure 94 mm[Hg] Kiana Glasenapp PA-C Work Phone: [facility] 07-20-2022 15:24-0400 Body height 157 cm ARSENIO BUSH MD [facility] 07-20-2022 15:24-0400 Body temperature 98.6 [degF] ARSENIO BUSH MD [facility] 07-20-2022 15:24-0400 Body weight 81 kg ARSENIO BUSH MD [facility] 07-20-2022 15:24-0400 Diastolic blood pressure 90 mm[Hg] ARSENIO BUSH MD [facility] 07-20-2022 15:24-0400 Heart rate 100 /min ARSENIO BUSH MD [facility] 07-20-2022 15:24-0400 Respiratory rate 16 /min ARSENIO BUSH MD [facility] 07-20-2022 15:24-0400 Systolic blood pressure 139 mm[Hg] ARSENIO BUSH MD [facility] Encounters Encounter Date Encounter Type Care Provider Facility Start: 01-06-2024 Telephone encounter Graham mendiola MD Work Phone: OB/Gynecology Procedures Date Procedure Procedure Detail Performing Clinician Start: 05-05-2023 Transvaginal echography MD Martin Mckenna Work Phone: Start: 02-09-2023 BASIC METABOLIC PNL Ge ob Current DO Work Phone: Start: 02-09-2023 CBC + DIFF Bunny Curr ent DO Work Phone: Start: 02-09-2023 HCG QUANTITATIVE Bunny Current DO Work Phone: Start: 02-09-2023 HEPATIC FUNCTION PNL Ja cob Current DO Work Phone: Start: 02-09-2023 LIPASE BLD Bunny Curr ent DO Work Phone: Start: 02-09-2023 URINALYSIS, DIPSTICK ONLY Bunny Current DO Work Phone: Start: 02-09-2023 URINALYSIS, WITH MICROSCOPIC Bunny Current DO Work Phone: Start: 01-11-2023 Ecg routine ecg w/le ast 12 lds trcg only w/o i&r Ccf Provider Start: 01-11-2023 BASIC METABOLIC PNL Fabi Pizano Work Phone: Start: 01-11-2023 CBC + DIFF Chelo Pizano Work Phone: Start: 01-11-2023 HEPATIC FUNCTION PNL Na devi Pizano Work Phone: Start: 01-11-2023 LIPASE BLD Chelo Pizano Work Phone: Start: 01-11-2023 URINALYSIS, DIPSTICK ONLY Harris Pizano Work Phone: Start: 01-11-2023 HCG QUANTITATIVE Harris Pizano Work Phone: Start: 12-08-2022 ACUTE HEPATITIS Kayden Recio MD Work Phone: Start: 12-08-2022 GLUCOSE RANDOM BLD Caesar Recio MD Work Phone: Start: 12-08-2022 Hemoglobin A1c/Hemoglobin.total in Blood Nando Recio MD Work Phone: Start: 12-08-2022 HIV RAPID (UNION) Aleja Recio MD Work Phone: Start: 12-08-2022 INSULIN ASSAY BLOOD Jefferson Recio MD Work Phone: Start: 12-08-2022 RPR SCREEN Nando ramirez MD Work Phone: Start: 11-30-2022 PROLACTIN BLD Nando Recio MD Work Phone: Start: 11-30-2022 T3 BLD Nando ramirez MD Work Phone: Start: 11-30-2022 T4/THYROXINE BLOOD Caesar Recio MD Work Phone: Start: 11-30-2022 TSH BLD Nando ramirez MD Work Phone: Start: 11-30-2022 Us transvaginal Kayden Recio MD Work Phone: Start: 03-22-2022 HCG QUANTITATIVE Provid er Cchs Start: 03-20-2022 ABO AND RH ONLY Indira P earch [employer] Work Phone: Start: 03-20-2022 CBC + DIFF Indira Pear ch [employer] Work Phone: Start: 03-20-2022 HCG QUANTITATIVE Indira Brown [employer] Work Phone: Start: 03-20-2022 UA WITH CULTURE IF INDICATED Indira Brown [employer]PER[employer] Work Phone: Start: 03-20-2022 US OB TRANSVAGINAL Josue i Kevin [employer]PER[employer] Work Phone: Start: 03-03-2022 Ct head/brain w/o co ntrast material Provider [facility] Start: 03-03-2022 HCG QUAL UR Suhas Trammell Work Phone: Start: 03-03-2022 CK CREATINE KINASE Suhas Trammell Work Phone: Start: 03-03-2022 Creatine kinase.MB [Mass/volume] in Serum or Plasma Suhas Trammell Work Phone: Start: 03-03-2022 Radiologic exam ches t 2 views Suhas Trammell Work Phone: Start: 03-03-2022 TROPONIN T Suhas Trammell Work Phone: Start: 03-25-2021 Adult depression scr eening assessment Beba Hancock Work Phone: Tonsil and adenoid structure (body structure) FRIDA YOO MD Tube (qualifier value) GLEN YOO MD Plan of Treatment Date Care Activity Detail Author Start: 11-08-2023 Depression Assessment Depression Assessment [facility] Start: 07-09-2023 Influenza vaccination [facility] Start: 05-17-2023 Urine microalbumin profile [facility] Start: 05-09-2023 [facility] Start: 05-03-2023 [facility] Start: 05-03-2023 Comprehensive metabolic 2000 panel - Serum or Plasma [facility] Start: 05-03-2023 Prolactin [Units/volume] in Serum or Plasma by Immunoassay [facility] Start: 05-03-2023 Thyrotropin [Units/volume] in Serum or Plasma [facility] Start: 2022 PAP TESTING PAP TESTING [facility] Start: 2022 Screening for malignant neoplasm of cervix Pap Testing [facility] Start: 11-08-2022 DEPRESSION ASSESSMENT DEPRESSION ASSESSMENT [facility] Start: 07-09-2022 Influenza vaccination [facility] Start: 03-26-2022 CHLAMYDIA SCREENING (18-24) CHLAMYDIA SCREENING (18-24) [facility] Start: 03-26-2022 GC (GONORRHEA) SCREENING (18-24) GC (GONORRHEA) SCREENING (18-24) [facility] Start: 03-26-2022 Screening for Chlamydia trachomatis Chlamydia Screening (18-24) [facility] Start: 03-25-2022 Adult depression screening assessment DEPRESSION SCREENING [facility] Start: 11-08-2021 DEPRESSION ASSESSMENT DEPRESSION ASSESSMENT [facility] Start: 07-09-2021 Influenza vaccination INFLUENZA (#1) [facility] Start: 2019 HIV SCREENING HIV SCREENING [facility] Start: 2019 HIV screening HIV Screening [facility] Start: 2017 Meningococcal B Vaccine: Consider Based On Risk (1 of 2 - Patient Seeks Protection) Meningococcal B Vaccine: Consider Based On Risk (1 of 2 - Patient Seeks Protection) [facility] Start: 2015 PEDS TO ADULT TRANSITION ANNUAL ASSESSMENT PEDS TO ADULT TRANSITION ANNUAL ASSESSMENT [facility] Start: 2013 PEDS TO ADULT TRANSITION INITIAL DISCUSSION PEDS TO ADULT TRANSITION INITIAL DISCUSSION [facility] Start: 11-17-2013 HPV VACCINE (2 - 2-dose series) HPV VACCINE (2 - 2-dose series) [facility] Start: 2011 MENINGOCOCCAL B: Consider based on risk (1 of 2 - Risk Bexsero 2-dose series) MENINGOCOCCAL B: Consider based on risk (1 of 2 - Risk Bexsero 2-dose series) [facility] Start: 2006 COVID-19 VACCINE (#1) COVID-19 VACCINE (#1) [facility] Start: 2006 COVID-19 VACCINE (1) COVID-19 VACCINE (1) [facility] Start: 06-26-2002 COVID-19 VACCINE (#1) COVID-19 VACCINE (#1) [facility] Alanine aminotransfe rase [Enzymatic activity/volume] in Serum or Plasma [facility] Albumin [Mass/volume ] in Unspecified specimen [facility] Albumin/Globulin ratio [facility] Alkaline phosphatase [Enzymatic activity/volume] in Serum or Plasma [facility] Anion gap measurement [facility] Bacteria identified in Urine by Culture [facility] Bilirubin.total [Mass/volume] in Serum or Plasma [facility] Calcium [Mass/volume ] in Unspecified specimen [facility] Carbon dioxide, tota l [Moles/volume] in Serum or Plasma [facility] Chloride measurement [facility] Creatinine [Mass/vol ume] in Serum or Plasma [facility] Globulin [Mass/volum e] in Serum [facility] Glomerular filtratio n rate/1.73 sq M.predicted [Volume Rate/Area] in Serum, Plasma or Blood by Creatinine-based formula (CKD-EPI) [facility] Glucose [Mass/volume ] in Serum or Plasma [facility] Patient Education [facility] Work Phone: Patient referral [facility] Work Phone: Potassium [Moles/vol ume] in Serum, Plasma or Blood [facility] Protein [Mass/volume ] in Serum or Plasma [facility] Sodium [Moles/volume ] in Serum, Plasma or Blood [facility] Urea nitrogen [Mass/ volume] in Serum or Plasma [facility] Immunizations Immunization Date Immunization Notes Care Provider Erin aj 06-20-2019 meningococcal polysaccharide (groups A, C, Y and W-135) diphtheria toxoid conjugate vaccine (MCV4P) Beba Hancock Work Phone: [facility] 09-18-2016 influenza, injectabl e, quadrivalent, preservative free Beba Hancock Work Phone: [facility] 09-18-2016 influenza, injectable,quadrivalent, preservative free, pediatric Kiana Wiseman PA-C Work Phone: [facility] 09-18-2016 influenza virus vacc ine, unspecified formulation Provider [facility] 10-29-2015 influenza virus vacc ine, live, attenuated, for intranasal use Kiana Wiseman PA-C Work Phone: [facility] 10-29-2015 influenza, live, intranasal, quadrivalent Beba Hancock Work Phone: [facility] 07-18-2014 meningococcal polysaccharide (groups A, C, Y and W-135) diphtheria toxoid conjugate vaccine (MCV4P) Bebayessenia Hancock Work Phone: [facility] 05-17-2013 human papilloma viru s vaccine, quadrivalent Beba Rowe Work Phone: [facility] 05-17-2013 tetanus toxoid, redu katharina diphtheria toxoid, and acellular pertussis vaccine, adsorbed Bebayessenia Hancock Work Phone: [facility] 09-19-2012 influenza virus vacc ine, live, attenuated, for intranasal use Beba Rowe Work Phone: [facility] 06-10-2012 hepatitis A vaccine, pediatric/adolescent dosage, 2 dose schedule Bebayessenia Hancock Work Phone: [facility] 09-14-2011 influenza virus vacc ine, live, attenuated, for intranasal use Beba Hancock Work Phone: [facility] 10-23-2010 hepatitis A vaccine, pediatric/adolescent dosage, 2 dose schedule Bebayessenia Hancock Work Phone: [facility] 10-23-2010 influenza virus vacc ine, live, attenuated, for intranasal use Bebayessenia Hancock Work Phone: [facility] 03-10-2007 diphtheria, tetanus toxoids and acellular pertussis vaccine Beba Paulinoe Work Phone: [facility] 03-10-2007 diphtheria, tetanus toxoids and acellular pertussis vaccine, unspecified formulation Kiana Wiseman PA-C Work Phone: [facility] 03-10-2007 measles, mumps and rubella virus vaccine Beba Hancock Work Phone: [facility] 03-10-2007 poliovirus vaccine, inactivated Bebayessenia Hancock Work Phone: [facility] 03-10-2007 varicella virus vaccine Kimb tenzin Hancock Work Phone: [facility] 05-07-2003 diphtheria, tetanus toxoids and acellular pertussis vaccine Beba Hancock Work Phone: [facility] 05-07-2003 diphtheria, tetanus toxoids and acellular pertussis vaccine, unspecified formulation Kiana Abreupp PA-C Work Phone: [facility] 05-07-2003 haemophilus influenz ae type b vaccine, PRP-T conjugate Beba Hancock Work Phone: [facility] 05-07-2003 pneumococcal conjuga te vaccine, 7 valent Beba Hancock Work Phone: [facility] 01-19-2003 measles, mumps and rubella virus vaccine Beba Hancock Work Phone: [facility] 01-19-2003 varicella virus vaccine Radha Hancock Work Phone: [facility] 10-12-2002 poliovirus vaccine, inactivated Beba Paulinoe Work Phone: [facility] 07-13-2002 diphtheria, tetanus toxoids and acellular pertussis vaccine Beba Hancock Work Phone: [facility] 07-13-2002 diphtheria, tetanus toxoids and acellular pertussis vaccine, unspecified formulation Kiana Pantojaivapp PA-C Work Phone: [facility] 07-13-2002 haemophilus influenz ae type b conjugate and Hepatitis B vaccine Kiana Glasenapp PA-C Work Phone: [facility] 07-13-2002 haemophilus influenz ae type b vaccine, PRP-T conjugate Beba Hancock Work Phone: [facility] 07-13-2002 hepatitis B vaccine, pediatric or pediatric/adolescent dosage Beba Hancock Work Phone: [facility] 07-13-2002 pneumococcal conjuga te vaccine, 7 valent Beba Hancock Work Phone: [facility] 04-26-2002 diphtheria, tetanus toxoids and acellular pertussis vaccine Beba Hancock Work Phone: [facility] 04-26-2002 diphtheria, tetanus toxoids and acellular pertussis vaccine, unspecified formulation Kiana PantojaServiceTitanpp PA-[employer] Work Phone: [facility] 04-26-2002 haemophilus influenz ae type b vaccine, PRP-T conjugate Beba Hancock Work Phone: [facility] 04-26-2002 pneumococcal conjuga te vaccine, 7 valent Beba Hancock Work Phone: [facility] 04-26-2002 poliovirus vaccine, inactivated Beba Hancock Work Phone: [facility] 02-27-2002 diphtheria, tetanus toxoids and acellular pertussis vaccine Beba Hancock Work Phone: [facility] 02-27-2002 diphtheria, tetanus toxoids and acellular pertussis vaccine, unspecified formulation Kiana [employer] Work Phone: [facility] 02-27-2002 haemophilus influenz ae type b conjugate and Hepatitis B vaccine Kiana Gl[employer] PA[employer] Work Phone: [facility] 02-27-2002 haemophilus influenz ae type b vaccine, PRP-T conjugate Beba Hancock Work Phone: [facility] 02-27-2002 hepatitis B vaccine, pediatric or pediatric/adolescent dosage Beba Hancock Work Phone: [facility] 02-27-2002 pneumococcal conjuga te vaccine, 7 valent Beba Hancock Work Phone: [facility] 02-27-2002 poliovirus vaccine, inactivated Beba Hancock Work Phone: [facility] 2001 hepatitis B vaccine, pediatric or pediatric/adolescent dosage Beba Hancock Work Phone: [facility] Payers Date Payer Category Payer Medicaid [id number] 2023 Self-pay 2022 Unknown [id number] 2015 Medicaid [facility] [id number] 2015-Present [phone] [address] [place] [address] Medicaid [id number] 2015 Medicaid [id number]. [id number] 2001 Unknown [id number] 2.16.840.1.901201.3.579.2.627 2001 Unknown [id number] 2.16.840.1.894757.3.579.2.627 2001 Unknown [id number] 2.16.840.1.813598.3.579.2.627 2001 Unknown [id number] 2.16.840.1.806612.3.579.2.627 2001 Unknown [id number] 2.16.840.1.137769.3.579.2.627 2001 Unknown [id number] 2.16.840.1.837842.3.579.2.627 2001 Unknown [id number] 2.16.840.1.020150.3.579.2.627 2001 Unknown [id number] 2.16.840.1.903965.3.579.2.627 2001 Unknown [id number] 2.16.840.1.043231.3.579.2.627 Unknown [id number] 2.16.840.1.610522.3.579.2.283 Unknown [id number] 2.16.840.1.435746.3.579.2.283 Unknown [id number] 2.16.840.1.557874.3.579.2.283 Unknown [id number] 2.16.840.1.662393.3.579.2.283 Unknown [id number] 2.16.840.1.116814.3.579.2.283 Unknown [id number] 2.16.840.1.921689.3.579.2.283 Unknown [id number] 2.16.840.1.499675.3.579.2.661 Unknown [id number] 2.16.840.1.825567.3.579.2.661 Unknown [id number] 2.16.840.1.496599.3.579.2.661 Unknown [id number] 2.16.840.1.428053.3.579.2.661 Unknown [id number] 2.16.840.1.194191.3.579.2.661 Unknown [id number] 2.16.840.1.712049.3.579.2.661 Unknown [id number] 2.16.840.1.316130.3.579.2.661 Social History Date Type Detail Facility Start: 03-25-2021 End: 08-17-2022 Tobacco smoking status TXIS Never smoked tobacco [facility] Start: 03-25-2021 End: 08-17-2022 Tobacco use and exposure Smokeless tobacco non-user [facility] Start: 09-28-2021 End: 02-13-2022 Alcohol intake Ex-drinker (finding) [facility] Start: 03-09-2021 [facility] Start: 2001 Sex Assigned At Not on file [facility] Tobacco smoking stat us TXIS Tobacco smoking consumption unknown [facility] Start: 04-15-2021 End: 08-22-2022 Exposure to SARS-CoV-2 (event) Not sure [facility] Tobacco Nicotine Use: Va ping Product in Last 90 Days. [facility] Tobacco smoking status No Smokin g Status Entered [facility] Start: 2001 Sex Assigned At Female A [facility] Start: 08-22-2022 End: 01-05-2024 Alcohol intake Current drinker of alcohol (finding) [facility] Start: 08-17-2022 History SDOH Food Worry 1 [facility] Start: 08-17-2022 [facility] Start: 04-30-2023 End: 05-09-2023 Tobacco smoking status NHIS Smokes tobacco daily (finding) [facility] Start: 04-30-2023 e-cigarettes [facility] Start: 04-30-2023 current [facility] Start: 04-30-2023 marijuana [facility] Start: 04-30-2023 holidays/speci al occasions only [facility] Start: 05-09-2023 never [facility] Start: 08-22-2022 End: 11-23-2022 History of Social function [facility] Start: 08-22-2022 End: 11-23-2022 Tobacco use panel [facility] Adult Depression Screening Assessment 0 [facility] (I/We) worried wheth er (my/our) food would run out before (I/we) got money to buy more. Never true [facility] Functional Status Date Assessment Result Facility 07-20-2022 Functional Status Standard Safet y ID band on, Call device within reach, Bed in low position, Wheels locked, Visitor at bedside [facility] Mental Status Date Assessment Result Facility 05-09-2023 Cognitive function Level of Cons ciousness Alert;Appropriate;Awake [facility] Work Phone: 04-30-2023 Cognitive function Level of Cons ciousness Alert;Appropriate;Awake;Follow s Commands;Oriented [facility] Work Phone: 07-20-2022 Mental Status Orientation Oriented x 4 [facility] Clinical Notes 12-13-2020 to 01-06-2024 Telephone Encounter - Kailee Weir RN - 01/06/2024 9:55 AM ESTTelephone Encounter - Graham Johnson MD - 01/06/2024 9:39 AM ESTTelephone Encounter - Kailee Weir RN - 01/06/2024 9:31 AM EST Note Date & Type Note Facility 01-06-2024 Miscellaneous Notes Formatting of this note might be differe nt from the original. Letter written and faxed. Kailee Weir RN That is fine. Thank you. Graham Johnson MD home that picked up demise requesting letter from Dr. Johnson stating that the fetus passed and the gestational age at time of passing. OK to draft letter? home fax number [phone]. Kailee Weir RN documented in this encounter [facility] 01-05-2024 Miscellaneous Notes Formatting of this note might be differe nt from the original. Patient delivered IUFD via by Dr. Johnson on 01/05/24 at [facility]. See OB history. Cheri Hayes RN documented in this encounter [facility] 11-27-2023 Note . MICRO - Microbiology PROCEDURE: Urine Culture [*1] SOURCE: Urine, Clean Catch BODY SITE: COLLECTED DATE/TIME: 11/25/2023 17:16 EST RECEIVED DATE/TIME: 11/25/2023 17:35 EST START DATE/TIME: 11/25/2023 17:35 EST FREE TEXT SOURCE: FINAL REPORTS Final Report [] Verified Date/Time/Personnel: 11/27/2023 07:50 EST >100,000 cfu/ml Mixed growth consistent with normal urogenital varinder. PRELIMINARY REPORTS Preliminary Report [] Verified Date/Time/Personnel: 11/26/2023 09:33 EST No growth to date Performing Locations *1: This test was performed at: [facility], [address] [place] [address], [id number] , [facility] ([place]) 11-25-2023 Evaluation + Plan note Diagnostic Tests PendingUrine Culture 11/25/23 [facility] 10-27-2023 Note . MICRO - Microbiology PROCEDURE: Urine Culture [*1] SOURCE: Urine, Clean Catch BODY SITE: COLLECTED DATE/TIME: 10/25/2023 12:00 EST RECEIVED DATE/TIME: 10/25/2023 20:22 EST START DATE/TIME: 10/25/2023 20:23 EST FREE TEXT SOURCE: FINAL REPORTS Final Report [] Verified Date/Time/Personnel: 10/27/2023 07:48 EST >100,000 cfu/ml Mixed growth consistent with normal urogenital varinder. PRELIMINARY REPORTS Preliminary Report [] Verified Date/Time/Personnel: 10/26/2023 09:28 EST Culture results pending. Performing Locations *1: This test was performed at: [facility], [address] [place] [address], [facility] , [facility] ([place]) 09-04-2023 Hospital Discharge instructions Patient Education 09/04/2023 00:04:43 Pelvic Pain, Unknown Cause Pelvic Pain, Uncertain Cause Pelvic pain is pain felt in the lowest part of the belly (abdomen) and between the hipbones. The pain may occur suddenly and recently (acute). Or the pain may last for 6 months or longer (chronic). There are many possible causes of pelvic pain. The pain may be due to a problem in the female reproductive system. Or, it may be due to a problem in the digestive, urinary, or musculoskeletal systems. Based on your visit today, the exact cause of your pelvic pain is not certain. Your condition does not appear to be serious at this time. But it is important for you to keep watching for any new symptoms or worsening of your condition. General care Your healthcare provider may advise a number of ways to help manage your pain. These can include: Taking junv-cvi-vhhrtfa pain medicine. Stronger pain medicine may also be prescribed, if needed. Applying heat to the pelvic area. Use a heating pad or a hot pack. Taking a hot bath may also help. Getting plenty of rest. Making certain lifestyle changes. These can include practicing good posture and getting regular exercise. Studies have shown that these changes help reduce pelvic pain in some women. Seeing a physical therapist or pain specialist. These healthcare providers can discuss other ways to manage pain with you. Follow-up care Follow up with your healthcare provider, or as advised. When to seek medical advice Call your healthcare provider right away if any of the following occur: Fever of 100.4 F or higher, or as directed by your healthcare provider Pain worsens or you have sudden, severe pain or new pain Nausea, vomiting, sweating, or restlessness Dizziness or fainting Unusual vaginal discharge Abnormal vaginal bleeding (especially bleeding after menopause) [id number] [employer]. [address] [place] [address]. All rights reserved. This information is not intended as a substitute for professional medical care. Always follow your healthcare professional's instructions. Follow Up Care 09/03/2023 21:57:43 With:SHANNAN PASTRANA DO Address: [address] [place] [phone] When:2-4 days [facility] 09-04-2023 Summary note Discharge Instructions Thank you for allowing [facility] to assist you with your healthcare needs. The following is important discharge information regarding your hospital visit. Diagnosis from Today's Visit Vaginal bleeding - < 20 wks What to Do Next Instructions from Your Care Team No qualifying data available. Post Acute Orders No qualifying data available. You Need to Schedule the Following Appointments Follow Up with SHANNAN PASTRANA DO When Within 2-4 days Where: [address] [place] [phone] Allergies No Known Medication Allergies Medications Please ask your primary doctor or pharmacist before taking any other medication not listed, including over the counter drugs, herbal medications, vitamins and or supplements as they may interact with your home medications. What How Much When Instructions Last Dose New naproxen (naproxen 500 mg oral tablet) 1 tab(s) by mouth Two (2) times a day Duration: 7 Days Printed Prescription Unchanged multivitamin, ( Multivitamins) 1 tab by mouth Once a day Please take this list to your next doctor s visit. Bring all medications you take, including over the counter medications, herbals and other supplements with you to your doctor s visit. Patients and families are reminded to discard old lists and to update any records with all medication providers or retail pharmacies. Education Materials Pelvic Pain, Uncertain Cause Pelvic pain is pain felt in the lowest part of the belly (abdomen) and between the hipbones. The pain may occur suddenly and recently (acute). Or the pain may last for 6 months or longer (chronic). There are many possible causes of pelvic pain. The pain may be due to a problem in the female reproductive system. Or, it may be due to a problem in the digestive, urinary, or musculoskeletal systems. Based on your visit today, the exact cause of your pelvic pain is not certain. Your condition does not appear to be serious at this time. But it is important for you to keep watching for any new symptoms or worsening of your condition. General care Your healthcare provider may advise a number of ways to help manage your pain. These can include: Taking ptlk-olw-hgjmikn pain medicine. Stronger pain medicine may also be prescribed, if needed. Applying heat to the pelvic area. Use a heating pad or a hot pack. Taking a hot bath may also help. Getting plenty of rest. Making certain lifestyle changes. These can include practicing good posture and getting regular exercise. Studies have shown that these changes help reduce pelvic pain in some women. Seeing a physical therapist or pain specialist. These healthcare providers can discuss other ways to manage pain with you. Follow-up care Follow up with your healthcare provider, or as advised. When to seek medical advice Call your healthcare provider right away if any of the following occur: Fever of 100.4 F or higher, or as directed by your healthcare provider Pain worsens or you have sudden, severe pain or new pain Nausea, vomiting, sweating, or restlessness Dizziness or fainting Unusual vaginal discharge Abnormal vaginal bleeding (especially bleeding after menopause) [phone] [employer]. [address] [place] [address], [place] [address]. All rights reserved. This information is not intended as a substitute for professional medical care. Always follow your healthcare professional's instructions. Additional Information VACCINATE! IT SAVES LIVES! Members of the community who have not yet received the COVID-19 vaccine and would like to receive it can visit one of [facility] vaccine clinics. There are many vaccine clinic locations within the [facility]. For locations and available times, please visit www.gettheshot.coronavirus.[place].gov/. It is important to note that some COVID mobile vaccine clinics are held outdoors and may be canceled in rainy or stormy conditions. To learn more about pediatric vaccinations (ages 5-11), we invite you to visit the [facility] webpage. https://www.[facility].org/pages/2019-Novel- Uvlsfbvqlic-Pyptcutehv-Jyzxf-Questions.html To learn more about the COVID-19 vaccine, we invite you to visit the CDC website for a list of frequently asked questions. https://www.cdc.gov/coronavirus/2019-ncov/vaccin es/faq.html [facility] Patient Portal Access Instructions: Stay connected with your healthcare team and access your personal medical information anytime with the [facility] Patient Portal. If you would like a full copy of your medical records please contact the [facility] Medical Records Department Wednesday through Wednesday between 8a.m. and 4:30p.m. Please follow the directions below to access the portal: 1.Access the email account you provided upon registration to the hospital.2.Look for an invitation email from [facility].3.Open the email and access the invitation link: Accept Invitation to [facility]4.Fill in the required mujica to create your account. Sign into www.[employer] with your username and password that you created in the above steps to stay up to date. You can then view a summary of results, a summary of your visits, and the ability to download your summaries to your computer or send the information securely to a physician. Remember that your healthcare information is confidential, so carefully consider who you will allow to register on the [facility] Patient Portal for access to your information. You can also access the [facility] Patient Portal on the [employer] marlyn. Simply click on Health Records under Health Data and then click on the [facility] logo. HOW TO SAFELY DISPOSE OF PRESCRIPTION MEDICATIONS Please use one of the following methods to safely dispose of your unused medications. 1.Use a drug disposal kit: the drug disposal pouch allows you to safely discard your old and unused drugs. Ask your nurse to give you one when you are discharged.2.Visit a local take-back location: Many local pharmacies and police departments have programs that collect old and unwanted prescription drugs. Call your local pharmacy or go to http://bit.[place] [employer]/8U2Lw4n to find one close to you.3.Make use of household items: Use cat litter or old coffee grounds to dispose medications if other options are not available. Mix your drugs with these household products, seal them in an airtight container and throw it into the garbage. Call [facility]: [phone] to be sure your drugs can be disposed of in this way. Some medicines may require a different approach.4.Never flush your medications down the toilet. IF YOU HAVE BEEN PRESCRIBED AN OPIOIDS FOR PAIN If you have been prescribed an opioid (such as hydrocodone, oxycodone or morphine), it is critical to understand the possible side effects and risks of opioid pain medications. Even when taken as directed, opioids can have several side effects including: Tolerance, meaning you might need to take more of a medication for the same pain relief. Nausea, vomiting and/or constipation. Sleepiness, dizziness, dry mouth, confusion, depression or itching. Physical dependence, meaning you have withdrawal symptoms when a medication is stopped ? this can develop within a few days. KNOW YOUR RESPONSIBILITIES It is important to know exactly how much and how often to take the opioid pain medications you are prescribed. Never take opioids in higher amounts or more often than prescribed. Do not combine opioids with alcohol or other drugs that cause drowsiness, such as benzodiazepines, also known as benzos, including diazepam and alprazolam, muscle relaxants or sleep aids. Never sell or share prescription opioids. This is illegal. Store opioids in a secure place and out of reach of others (including children, family, friends and visitors). The last page(s) of this document has been signed and retained as a CHART COPY Signatures Patient Education Materials Pelvic Pain, Unknown Cause Medication Leaflets My discharge plan and instructions have been reviewed and explained to me and I,JYOTI JUNG understand my current condition and have read and understand these discharge instructions. I have received a written copy of the plan/instructions. If I have questions, I am aware that I should contact my doctor. 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 Jyoti Jung is a 21 year old year old female. Patient presents for BC consult. On OCPs. Hopes to stay on pill. No hx DVT/PE, liver dz, migraine w/aura, clotting disorders, CA. Currently vapes. Trying to quit. Patient's last menstrual period was 07/24/2022 (approximate). History reviewed. No pertinent family history. OB History T0 L0 SAB3 IAB0 Ectopic0 Multiple0 Live Births0 PAST MEDICAL HISTORY Diagnosis Date Asthma NEGATIVE MEDICAL HISTORY PAST SURGICAL HISTORY Procedure Laterality Date NONE Current Outpatient Medications Medication Sig albuterol HFA (PROVENTIL HFA, VENTOLIN HFA) 90 mcg/actuation inhaler Inhale 2 Puffs as instructed every 4 hours as needed. dextromethorphan polistirex ER (DELSYM) 30 mg/5 mL oral liquid Take 10 mL by mouth twice daily. Cholecalciferol, Vitamin D3, 125 mcg (5,000 unit) cap Norethindrone, Contraceptive, 0.35 mg tablet Take 1 tablet by mouth once daily. No current facility-administered medications for this visit. ALLERGIES No Known Allergies Social History Social History Narrative Not on file ROS: SEE HPI PE: GENERAL: well-appearing, in no acute distress LUNGS: Normal inspiratory effort NEURO: Awake, alert and oriented A/P: 21 year old y/o F here for BC consult. 1. Encounter for counseling regarding contraception 2. Encounter for initial prescription of contraceptive pills - HCGu negative - Rx POP sent x3 mos - Recommend cessation of vaping F/U 3 mos Kiana Wiseman PA-C Medical Decision Making: Problems: Minimal: Self-limited or minor problem Data: Unique test result(s) reviewed: 1 Risk: Minimal: Minimal risk from testing/treatment Medical Decision Making Level: 2 - Straightforward documented in this encounter [facility] 07-20-2022 Hospital Discharge instructions Patient Education 07/20/2022 16:34:08 Hypertension, To Be Confirmed High Blood Pressure, To Be Confirmed, No Treatment Your blood pressure today was higher than normal. Sometimes anxiety or pain can cause a temporary rise in blood pressure. It later returns to normal. Blood pressure that is high only one time doesn t mean that you have high blood pressure (hypertension). High blood pressure is a chronic illness. But you should have your blood pressure measured again within the next few days to find out if it s still high. Blood pressure measurements are given as 2 numbers. Systolic blood pressure is the upper number. This is the pressure when the heart contracts. Diastolic blood pressure is the lower number. This is the pressure when the heart relaxes between beats. You will see your blood pressure readings written together. For example, a person with a systolic pressure of 118 and a diastolic pressure of 78 will have 118/78 written in the medical record. Blood pressure is categorized as normal, elevated, or stage 1 or stage 2 high blood pressure: Normal blood pressure is systolic of less than 120 and diastolic of less than 80 (120/80) Elevated blood pressure is systolic of 120 to 129 and diastolic less than 80 Stage 1 high blood pressure is systolic is 130 to 139 or diastolic between 80 to 89 Stage 2 high blood pressure is when systolic is 140 or higher or the diastolic is 90 or higher Lifestyle changes such as weight loss, exercise, and quitting smoking, can help manage your blood pressure. Have your blood pressure checked regularly to be sure it is under control. Home care To track your blood pressure, your provider may ask you to come into the office at different times and on different days. If your healthcare provider asks you to check your readings at home, ask him or her what times of the day to test and for how many days. Before you leave the office, ask your provider to show you how to take your blood pressure and be sure to ask questions if you don't understand something. Consider buying an automatic blood pressure monitor. Ask your provider for a recommendation as well as the proper size cuff to fit your arm. You can buy blood pressure monitors at most pharmacies. The [place] [employer] recommends the following guidelines for home blood pressure monitoring: Don't smoke or drink coffee or other caffeinated drinks for 30 minutes before taking your blood pressure. Go to the bathroom before the test. Relax for 5 minutes before taking the measurement. Sit with your back supported (don't sit on a couch or soft chair); keep your feet on the floor uncrossed. Place your arm on a solid flat surface (like a table) with the upper part of the arm at heart level. Place the middle of the cuff directly above the bend of the elbow. Check the monitor's instruction manual for an illustration. Take multiple readings. When you measure, take 2 to 3 readings one minute apart and record all of the results. Take your blood pressure at the same time every day, or as your healthcare provider recommends. Record the date, time, and blood pressure reading. Take the record with you to your next medical appointment. If your blood pressure monitor has a built-in memory, simply take the monitor with you to your next appointment. Call your provider if you have several high readings. Don't be frightened by a single high blood pressure reading, but if you get several high readings, check in with your healthcare provider. Note: When blood pressure reaches a systolic (top number) of 180 or higher OR diastolic (bottom number) of 110 or higher, seek emergency medical treatment. Follow-up care Keep all of your follow up appointments. If your blood pressure is more than 120 over 80 on 2 out of 3 days, you will need to follow up with your healthcare provider for more evaluation and treatment. Don t put this off! High blood pressure can be treated. High blood pressure that s not treated raises your risk for heart attack, heart failure, and stroke. When to seek medical advice Call your healthcare provider right away if any of these occur: Blood pressure reaches a systolic (top number) of 180 or higher, OR diastolic (bottom number) of 110 or higher Chest pain or shortness of breath Severe headache Throbbing or rushing sound in the ears Nosebleed Sudden severe pain in your belly (abdomen) Extreme drowsiness, confusion, or fainting Dizziness or dizziness with spinning sensation (vertigo) Weakness of an arm or leg or one side of the face You have problems speaking or seeing [id number] [facility]. [address] [place] [address], [place] [address]. All rights reserved. This information is not intended as a substitute for professional medical care. Always follow your healthcare professional's instructions. 07/20/2022 16:33:59 Fall, Mechanical Mechanical Fall You have had a fall today. It appears that the cause is what is called mechanical. That means that you slipped, tripped, or lost your balance. If your fall had been because of fainting or a seizure, you might need other tests. It is normal to feel sore and tight in your muscles and back the next day, and not just the muscles you injured at first. Remember, all the parts of your body are connected, so while initially one area hurts, the next day another may hurt. Also, when you injure yourself, it causes inflammation, which then causes the muscles to tighten up and hurt more. After the initial worsening, it should gradually improve over the next few days. Do report more severe pain. Even without a definite head injury, you can still get a concussion from your head suddenly jerking forward, backward, or sideways when falling. Concussions and even bleeding can still happen, especially if you have had a recent injury or take blood thinner medicine. It is not unusual to have a mild headache and feel tired and even nauseous or dizzy. Home care Rest today and go back to your normal activities when you are feeling back to normal. If you were injured during the fall, follow the advice from your healthcare provider regarding care of your injury. At first, do not try to stretch out the sore spots. If there is a strain, stretching may make it worse. Massage may help relax the muscles without stretching them. You can use an ice pack or cold compress on and off to the sore spots 10 to 20 minutes at a time, as often as you feel comfortable. This may help reduce the inflammation, swelling and pain. If you have any scrapes or abrasions, they usually heal within 10 days. It is important to keep the abrasions clean while they initially start to heal. However, an infection may happen even with proper care, so watch for early signs of infection (such as warmth, redness, or swelling). Medicines Talk to your healthcare provider before taking new medicines, especially if you have other medical problems or are taking other medicines. If you need anything for pain, you can take acetaminophen or ibuprofen, unless you were given a different pain medicine to use. Talk with your healthcare provider before using these medicines if you have chronic liver or kidney disease, or ever had a stomach ulcer or gastrointestinal bleeding, or are taking blood thinner medicines. Be careful if you are given prescription pain medicines, narcotics, or medicine for muscle spasm. They can make you sleepy and dizzy, and can affect your coordination, reflexes, and judgment. Do not drive or do work where you can injure yourself when taking them. Fall prevention Fix, remove, or replace anything that caused your fall. Make your home safe by keeping walkways clear of objects you may trip over. Use nonslip pads under rugs. Don't use small area rugs or throw rugs. Don't walk in poorly lit areas. Don't stand on chairs or wobbly ladders. Use caution when reaching overhead or looking upward. This position can cause a loss of balance. Be sure your shoes fit properly, have nonslip bottoms and are in good condition. Be cautious when going up and down curbs, and walking on uneven sidewalks. If your balance is poor, consider using a cane or walker. Stay as active as you can. Balance, flexibility, strength, and endurance all come from exercise. They all play a role in preventing falls. If you have pets, know where they are before you stand up or walk so you don't trip over them. Limit alcohol intake. Alcohol can cause balance problems and increase the risk of falls. Use night lights. Have your eyes tested to be sure you are seeing well, even if you already wear glasses. Follow-up Follow up with your healthcare provider, or as advised. If X-rays or CT scans were done, you will be notified if there is a change in the reading, especially if it affects treatment. Call 911 Call 911 if any of these happen: Trouble breathing Confused or difficulty arousing Fainting or loss of consciousness Rapid or very slow heart rate Seizure Difficulty with speech or vision, weakness of an arm or leg Difficulty walking or talking, loss of balance, numbness or weakness in one side of your body, or facial droop When to seek medical advice Call your healthcare provider right away if any of these happen: Repeated mechanical falls, or unexplained falls Dizziness Severe headache Blood in vomit, stools (black or red color) 3757-[address] [facility]. [address] [place] [address]. All rights reserved. This information is not intended as a substitute for professional medical care. Always follow your healthcare professional's instructions. 07/20/2022 16:33:56 Wrist Sprain Wrist Sprain A sprain is an injury to the ligaments or capsule that holds a joint together. There are no broken bones. Most sprains take about 3 to 6 weeks to heal. If it a severe sprain where the ligament is completely torn, it can take months to recover. Most wrist sprains are treated with a splint, wrist brace, or elastic wrap for support. Severe sprains may require surgery. Home care Keep your arm elevated to reduce pain and swelling. This is very important during the first 48 hours. Apply an ice pack over the injured area for 15 to 20 minutes every 3 to 6 hours. You should do this for the first 24 to 48 hours. You can make an ice pack by filling a plastic bag that seals at the top with ice cubes and then wrapping it with a thin towel. Continue to use ice packs for relief of pain and swelling as needed. As the ice melts, be careful to avoid getting your wrap, splint, or cast wet. After 48 hours, apply heat (warm shower or warm bath) for 15 to 20 minutes several times a day, or alternate ice and heat. You may use [id number]-[id number] pain medicine to control pain, unless another pain medicine was prescribed. If you have chronic liver or kidney disease or ever had a stomach ulcer or gastrointestinal bleeding, talk with your doctor before using these medicines. If you were given a splint or brace, wear it for the time advised by your doctor. Follow-up care Follow up with your healthcare provider, or as advised. Any X-rays you had today don t show any broken bones, breaks, or fractures. Sometimes fractures don t show up on the first X-ray. Bruises and sprains can sometimes hurt as much as a fracture. These injuries can take time to heal completely. If your symptoms don t improve or they get worse, talk with your doctor. You may need a repeat X-ray. If X-rays were taken, you will be told of any new findings that may affect your care. When to seek medical advice Call your healthcare provider right away if any of these occur: Pain or swelling increases Fingers or hand becomes cold, blue, numb, or tingly [id number] [facility]. [address] [place] [address], [place] [address]. All rights reserved. This information is not intended as a substitute for professional medical care. Always follow your healthcare professional's instructions. Follow Up Care 07/20/2022 15:13:02 With:GAETANO SALTER Address: [place] [address]- Business (1) When:2-4 days Comments:Follow-up as neededBrace 24/ x 1 week and if pain as described is still present will need to follow up for additional testing for navicular fracture. Can use anaprox or aleve for pain and add tylenol if needed. Follow up for blood pressure recheck With:NONE PHYSICIAN Address:Unknown When:2-4 days [facility] 07-20-2022 Emergency department Discharge summary Discharge Instructions Thank you for allowing [facility] to assist you with your healthcare needs. The following is important discharge information regarding your hospital visit. Diagnosis from Today's Visit Wrist sprain Fall Hypertension Wrist pain-swelling What to Do Next Instructions from Your Care Team Discharge Return to Work, School, or Sports (Return to Work, School, or Sports) - Ordered -- 07/21/22, 07/29/22, 07/21/22, May return to: work, 07/20/22 16:34:00 EDT Post Acute Orders No qualifying data available. You Need to Schedule the Following Appointments Follow Up with GAETANO SALTER When Within 2-4 days Why: Follow-up as needed Brace 24/ x 1 week and if pain as described is still present will need to follow up for additional testing for navicular fracture. Can use anaprox or aleve for pain and add tylenol if needed. Follow up for blood pressure recheck Where: [place] [address]- [facility] (1) Follow Up with NONE PHYSICIAN When Within 2-4 days Allergies No Known Medication Allergies Medications Please ask your primary doctor or pharmacist before taking any other medication not listed, including over the counter drugs, herbal medications, vitamins and or supplements as they may interact with your home medications. What How Much When Why Instructions Last Dose New naproxen (Anaprox-DS 550 mg oral tablet) 1 tab(s) by mouth Two (2) times a day Wrist sprain Fall Duration: 10 Days Printed Prescription Please take this list to your next doctor s visit. Bring all medications you take, including over the counter medications, herbals and other supplements with you to your doctor s visit. Patients and families are reminded to discard old lists and to update any records with all medication providers or retail pharmacies. Education Materials High Blood Pressure, To Be Confirmed, No Treatment Your blood pressure today was higher than normal. Sometimes anxiety or pain can cause a temporary rise in blood pressure. It later returns to normal. Blood pressure that is high only one time doesn t mean that you have high blood pressure (hypertension). High blood pressure is a chronic illness. But you should have your blood pressure measured again within the next few days to find out if it s still high. Blood pressure measurements are given as 2 numbers. Systolic blood pressure is the upper number. This is the pressure when the heart contracts. Diastolic blood pressure is the lower number. This is the pressure when the heart relaxes between beats. You will see your blood pressure readings written together. For example, a person with a systolic pressure of 118 and a diastolic pressure of 78 will have 118/78 written in the medical record. Blood pressure is categorized as normal, elevated, or stage 1 or stage 2 high blood pressure: Normal blood pressure is systolic of less than 120 and diastolic of less than 80 (120/80) Elevated blood pressure is systolic of 120 to 129 and diastolic less than 80 Stage 1 high blood pressure is systolic is 130 to 139 or diastolic between 80 to 89 Stage 2 high blood pressure is when systolic is 140 or higher or the diastolic is 90 or higher Lifestyle changes such as weight loss, exercise, and quitting smoking, can help manage your blood pressure. Have your blood pressure checked regularly to be sure it is under control. Home care To track your blood pressure, your provider may ask you to come into the office at different times and on different days. If your healthcare provider asks you to check your readings at home, ask him or her what times of the day to test and for how many days. Before you leave the office, ask your provider to show you how to take your blood pressure and be sure to ask questions if you don't understand something. Consider buying an automatic blood pressure monitor. Ask your provider for a recommendation as well as the proper size cuff to fit your arm. You can buy blood pressure monitors at most pharmacies. The [place] [employer] recommends the following guidelines for home blood pressure monitoring: Don't smoke or drink coffee or other caffeinated drinks for 30 minutes before taking your blood pressure. Go to the bathroom before the test. Relax for 5 minutes before taking the measurement. Sit with your back supported (don't sit on a couch or soft chair); keep your feet on the floor uncrossed. Place your arm on a solid flat surface (like a table) with the upper part of the arm at heart level. Place the middle of the cuff directly above the bend of the elbow. Check the monitor's instruction manual for an illustration. Take multiple readings. When you measure, take 2 to 3 readings one minute apart and record all of the results. Take your blood pressure at the same time every day, or as your healthcare provider recommends. Record the date, time, and blood pressure reading. Take the record with you to your next medical appointment. If your blood pressure monitor has a built-in memory, simply take the monitor with you to your next appointment. Call your provider if you have several high readings. Don't be frightened by a single high blood pressure reading, but if you get several high readings, check in with your healthcare provider. Note: When blood pressure reaches a systolic (top number) of 180 or higher OR diastolic (bottom number) of 110 or higher, seek emergency medical treatment. Follow-up care Keep all of your follow up appointments. If your blood pressure is more than 120 over 80 on 2 out of 3 days, you will need to follow up with your healthcare provider for more evaluation and treatment. Don t put this off! High blood pressure can be treated. High blood pressure that s not treated raises your risk for heart attack, heart failure, and stroke. When to seek medical advice Call your healthcare provider right away if any of these occur: Blood pressure reaches a systolic (top number) of 180 or higher, OR diastolic (bottom number) of 110 or higher Chest pain or shortness of breath Severe headache Throbbing or rushing sound in the ears Nosebleed Sudden severe pain in your belly (abdomen) Extreme drowsiness, confusion, or fainting Dizziness or dizziness with spinning sensation (vertigo) Weakness of an arm or leg or one side of the face You have problems speaking or seeing [id number] [facility]. [address] [place] [address], [place] [address]. All rights reserved. This information is not intended as a substitute for professional medical care. Always follow your healthcare professional's instructions. Mechanical Fall You have had a fall today. It appears that the cause is what is called mechanical. That means that you slipped, tripped, or lost your balance. If your fall had been because of fainting or a seizure, you might need other tests. It is normal to feel sore and tight in your muscles and back the next day, and not just the muscles you injured at first. Remember, all the parts of your body are connected, so while initially one area hurts, the next day another may hurt. Also, when you injure yourself, it causes inflammation, which then causes the muscles to tighten up and hurt more. After the initial worsening, it should gradually improve over the next few days. Do report more severe pain. Even without a definite head injury, you can still get a concussion from your head suddenly jerking forward, backward, or sideways when falling. Concussions and even bleeding can still happen, especially if you have had a recent injury or take blood thinner medicine. It is not unusual to have a mild headache and feel tired and even nauseous or dizzy. Home care Rest today and go back to your normal activities when you are feeling back to normal. If you were injured during the fall, follow the advice from your healthcare provider regarding care of your injury. At first, do not try to stretch out the sore spots. If there is a strain, stretching may make it worse. Massage may help relax the muscles without stretching them. You can use an ice pack or cold compress on and off to the sore spots 10 to 20 minutes at a time, as often as you feel comfortable. This may help reduce the inflammation, swelling and pain. If you have any scrapes or abrasions, they usually heal within 10 days. It is important to keep the abrasions clean while they initially start to heal. However, an infection may happen even with proper care, so watch for early signs of infection (such as warmth, redness, or swelling). Medicines Talk to your healthcare provider before taking new medicines, especially if you have other medical problems or are taking other medicines. If you need anything for pain, you can take acetaminophen or ibuprofen, unless you were given a different pain medicine to use. Talk with your healthcare provider before using these medicines if you have chronic liver or kidney disease, or ever had a stomach ulcer or gastrointestinal bleeding, or are taking blood thinner medicines. Be careful if you are given prescription pain medicines, narcotics, or medicine for muscle spasm. They can make you sleepy and dizzy, and can affect your coordination, reflexes, and judgment. Do not drive or do work where you can injure yourself when taking them. Fall prevention Fix, remove, or replace anything that caused your fall. Make your home safe by keeping walkways clear of objects you may trip over. Use nonslip pads under rugs. Don't use small area rugs or throw rugs. Don't walk in poorly lit areas. Don't stand on chairs or wobbly ladders. Use caution when reaching overhead or looking upward. This position can cause a loss of balance. Be sure your shoes fit properly, have nonslip bottoms and are in good condition. Be cautious when going up and down curbs, and walking on uneven sidewalks. If your balance is poor, consider using a cane or walker. Stay as active as you can. Balance, flexibility, strength, and endurance all come from exercise. They all play a role in preventing falls. If you have pets, know where they are before you stand up or walk so you don't trip over them. Limit alcohol intake. Alcohol can cause balance problems and increase the risk of falls. Use night lights. Have your eyes tested to be sure you are seeing well, even if you already wear glasses. Follow-up Follow up with your healthcare provider, or as advised. If X-rays or CT scans were done, you will be notified if there is a change in the reading, especially if it affects treatment. Call 911 Call 911 if any of these happen: Trouble breathing Confused or difficulty arousing Fainting or loss of consciousness Rapid or very slow heart rate Seizure Difficulty with speech or vision, weakness of an arm or leg Difficulty walking or talking, loss of balance, numbness or weakness in one side of your body, or facial droop When to seek medical advice Call your healthcare provider right away if any of these happen: Repeated mechanical falls, or unexplained falls Dizziness Severe headache Blood in vomit, stools (black or red color) [id number] [facility] [place] [address], [place] [id number]. All rights reserved. This information is not intended as a substitute for professional medical care. Always follow your healthcare professional's instructions. Wrist Sprain A sprain is an injury to the ligaments or capsule that holds a joint together. There are no broken bones. Most sprains take about 3 to 6 weeks to heal. If it a severe sprain where the ligament is completely torn, it can take months to recover. Most wrist sprains are treated with a splint, wrist brace, or elastic wrap for support. Severe sprains may require surgery. Home care Keep your arm elevated to reduce pain and swelling. This is very important during the first 48 hours. Apply an ice pack over the injured area for 15 to 20 minutes every 3 to 6 hours. You should do this for the first 24 to 48 hours. You can make an ice pack by filling a plastic bag that seals at the top with ice cubes and then wrapping it with a thin towel. Continue to use ice packs for relief of pain and swelling as needed. As the ice melts, be careful to avoid getting your wrap, splint, or cast wet. After 48 hours, apply heat (warm shower or warm bath) for 15 to 20 minutes several times a day, or alternate ice and heat. You may use guci-hjv-oztwram pain medicine to control pain, unless another pain medicine was prescribed. If you have chronic liver or kidney disease or ever had a stomach ulcer or gastrointestinal bleeding, talk with your doctor before using these medicines. If you were given a splint or brace, wear it for the time advised by your doctor. Follow-up care Follow up with your healthcare provider, or as advised. Any X-rays you had today don t show any broken bones, breaks, or fractures. Sometimes fractures don t show up on the first X-ray. Bruises and sprains can sometimes hurt as much as a fracture. These injuries can take time to heal completely. If your symptoms don t improve or they get worse, talk with your doctor. You may need a repeat X-ray. If X-rays were taken, you will be told of any new findings that may affect your care. When to seek medical advice Call your healthcare provider right away if any of these occur: Pain or swelling increases Fingers or hand becomes cold, blue, numb, or tingly [id number] [facility] [place] [address], [place] [address]. All rights reserved. This information is not intended as a substitute for professional medical care. Always follow your healthcare professional's instructions. Additional Information VACCINATE! IT SAVES LIVES! Members of the community who have not yet received the COVID-19 vaccine and would like to receive it can visit one of [facility] vaccine clinics. There are many vaccine clinic locations within the [facility]. For locations and available times, please visit [email or web address]. It is important to note that some COVID mobile vaccine clinics are held outdoors and may be canceled in rainy or stormy conditions. To learn more about pediatric vaccinations (ages 5-11), we invite you to visit the [facility] webpage. [email or web address] To learn more about the COVID-19 vaccine, we invite you to visit the [facility] website for a list of frequently asked questions. [email or web address] [facility] Patient Portal Access Instructions: Stay connected with your healthcare team and access your personal medical information anytime with the [facility] Patient Portal. If you would like a full copy of your medical records please contact the [facility] Medical Records Department Wednesday through Wednesday between 8a.m. and 4:30p.m. Please follow the directions below to access the portal: 1.Access the email account you provided upon registration to the hospital.2.Look for an invitation email from [facility].3.Open the email and access the invitation link: Accept Invitation to [facility]4.Fill in the required mujica to create your account. Sign into www.[email or web address] with your username and password that you created in the above steps to stay up to date. You can then view a summary of results, a summary of your visits, and the ability to download your summaries to your computer or send the information securely to a physician. Remember that your healthcare information is confidential, so carefully consider who you will allow to register on the [facility] Patient Portal for access to your information. You can also access the [facility] Patient Portal on the [employer] marlyn. Simply click on Health Records under Health Data and then click on the [employer] logo. HOW TO SAFELY DISPOSE OF PRESCRIPTION MEDICATIONS Please use one of the following methods to safely dispose of your unused medications. 1.Use a drug disposal kit: the drug disposal pouch allows you to safely discard your old and unused drugs. Ask your nurse to give you one when you are discharged.2.Visit a local take-back location: Many local pharmacies and police departments have programs that collect old and unwanted prescription drugs. Call your local pharmacy or go to http://[employer].[place] [employer]/9Q8Vz6r to find one close to you.3.Make use of household items: Use cat litter or old coffee grounds to dispose medications if other options are not available. Mix your drugs with these household products, seal them in an airtight container and throw it into the garbage. Call [facility]: [phone] to be sure your drugs can be disposed of in this way. Some medicines may require a different approach.4.Never flush your medications down the toilet. IF YOU HAVE BEEN PRESCRIBED AN OPIOIDS FOR PAIN If you have been prescribed an opioid (such as hydrocodone, oxycodone or morphine), it is critical to understand the possible side effects and risks of opioid pain medications. Even when taken as directed, opioids can have several side effects including: Tolerance, meaning you might need to take more of a medication for the same pain relief. Nausea, vomiting and/or constipation. Sleepiness, dizziness, dry mouth, confusion, depression or itching. Physical dependence, meaning you have withdrawal symptoms when a medication is stopped ? this can develop within a few days. KNOW YOUR RESPONSIBILITIES It is important to know exactly how much and how often to take the opioid pain medications you are prescribed. Never take opioids in higher amounts or more often than prescribed. Do not combine opioids with alcohol or other drugs that cause drowsiness, such as benzodiazepines, also known as benzos, including diazepam and alprazolam, muscle relaxants or sleep aids. Never sell or share prescription opioids. This is illegal. Store opioids in a secure place and out of reach of others (including children, family, friends and visitors). The last page(s) of this document has been signed and retained as a CHART COPY Signatures Patient Education Materials Hypertension, To Be Confirmed Fall, Mechanical Wrist Sprain Medication Leaflets My discharge plan and instructions have been reviewed and explained to me and I,JYOTI JUNG understand my current condition and have read and understand these discharge instructions. I have received a written copy of the plan/instructions. If I have questions, I am aware that I should contact my doctor. 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 Diffuse hand pain. FINDINGS: Osseous structures are intact without acute fracture or dislocation. No significant soft tissue abnormality. No unexpected radiopaque foreign body. Joint spaces are appropriately maintained. IMPRESSION: No acute osseous injury identified. RECOMMENDATIONS: Unavailable Interpreted by: Philip Mckeon Preliminary Report By: Arsenio Kenney Electronically signed By Philip Mckeon Dictated Date: 07/20/2022 3:57:39 PM Prelim Date: 07/20/2022 4:00:36 PM Sign Date: 07/20/2022 4:14:29 PM Ordering Provider: ARSENIO BUSH [facility] 07-20-2022 Note ORIGINAL EXAMINATION: 7 XRAY VIEWS OF THE LEFT WRIST07/20/2022 3:55 pm COMPARISON: None HISTORY: ORDERING SYSTEM PROVIDED HISTORY: Reason for Exam: pain FINDINGS: There is no acute fracture or dislocation. There is no significant soft tissue swelling. There is no radiopaque foreign body. The articulations are intact. IMPRESSION: No acute fracture or dislocation. Interpreted by: Juan Francisco Lomeli DO Preliminary Report By: Juan Francisco Lomeil DO Electronically signed By Juan Francisco Lomeli DO Dictated Date: 07/20/2022 3:56:22 PM Prelim Date: 07/20/2022 3:58:10 PM Sign Date: 07/20/2022 3:58:10 PM Ordering Provider: [facility] 07-20-2022 Note ORIGINAL EXAMINATION: THREE XRAY VIEWS OF THE LEFT HAND07/20/2022 3:56 pm COMPARISON: None HISTORY: ORDERING SYSTEM PROVIDED HISTORY: Reason for Exam: Tripped. Diffuse hand pain. FINDINGS: Osseous structures are intact without acute fracture or dislocation. No significant soft tissue abnormality. No unexpected radiopaque foreign body. Joint spaces are appropriately maintained. IMPRESSION: No acute osseous injury identified. RECOMMENDATIONS: Unavailable Interpreted by: Philip Mckeon Preliminary Report By: Arsenio Kenney Electronically signed By Philip Mckoen Dictated Date: 07/20/2022 3:57:39 PM Prelim Date: 07/20/2022 4:00:36 PM Sign Date: 07/20/2022 4:14:29 PM Ordering Provider: [facility] 07-20-2022 Note ORIGINAL EXAMINATION: 7 XRAY VIEWS OF THE LEFT WRIST07/20/2022 3:55 pm COMPARISON: None HISTORY: ORDERING SYSTEM PROVIDED HISTORY: Reason for Exam: pain FINDINGS: There is no acute fracture or dislocation. There is no significant soft tissue swelling. There is no radiopaque foreign body. The articulations are intact. IMPRESSION: No acute fracture or dislocation. Interpreted by: Juan Francisco Lomeli DO Preliminary Report By: Juan Francisco Lomeli DO Electronically signed By Juan Francisco Lomeli DO Dictated Date: 07/20/2022 3:56:22 PM Prelim Date: 07/20/2022 3:58:10 PM Sign Date: 07/20/2022 3:58:10 PM Ordering Provider: [facility] 03-30-2022 Miscellaneous Notes Images from the original note were not included. Routing message copied: Rex Hinojosa, DO You 1 hour ago (3:14 PM) That was meant to be for her episode of heavy bleeding that she was having when she paged me. At this point I would just hold off until she sees me in the office. Message text Request in [facility] marked as Med Discontinued . Dr Mckoy, we have received an email from [facility] that auth needs completed for Tranexamic Acid. I need an ICD 10 code please. documented in this encounter [facility] 03-21-2022 History of Present illness Narrative Patient page returned. Heavy bleeding, went to er yesterday. Believes she is having a miscarriage. Reviewed results, bhcg negative. Us showing no intrauterine but the report states she has a positive test. Last period February 12, reports history of regular but heavy menses. Not taking control as she has been trying to get . Based on the negative quant, I do not think this is a miscarriage and explained thi s to the patient. Rx for txa sent to pharmacy to control heavy bleeding. Patient understands. documented in this encounter [facility] 06-30-2021 History of Present illness Narrative DATE OF SERVICE: 06/29/2021 HISTORY OF PRESENT ILLNESS: The patient is a 20-year-old female with cough, congestion. She has had 1 episode of some blood when she was coughing. It was not gross hemoptysis, it was specks. Allergies, medications, medical and surgical history are per nursing assessment sheet. PHYSICAL EXAMINATION: Vitals are stable. On exam, pupils round and reactive. Ears clear. Pharyngeal erythema. No exudate or adenopathy. Lungs: A few scattered wheezes. No acute respiratory distress. Heart sounds without prominent rub, murmur, or bruit. Good color to the periphery. Otherwise, stable appearing. IMPRESSION: Bronchitis. PLAN: Antibiotic coverage and discharge. Also put her on an inhaler. HIRA Mejia/[id number] [employer] File#: [id number] END OF DOCUMENT / CHANGE LOG FOLLOWS Last Edited By Joshua. Signed By Luiz Hendricks Leonard F #DYKLE on 07/01/2021 11:02 ET on 07/01/2021 11:02 ET Revision Number - 2 ^^^ Verified/Reviewed by 07/01/21 1103 DEX [facility] PATIENT NAME: JYOTI JUNG [address] [facility] [address] [place] MEDICAL REC #: [id number] [place] [address] [place] [facility] REPORT STATCARE PHYSICIAN documented in this encounter [facility] documented as of this encounter (statuses as of 08/22/2022) [facility]21 History of Past illness Narrative* Problem Noted Date Resolved Date Maternal tobacco use in first trimester 04/11/2008/22/2022 Uterine fibroid in 04/11/2021 documented as of this encounter (statuses as of 01/12/2023) [facility] History of Past illness Narrative* Problem Noted Date Resolved Date Maternal tobacco use in first trimester 04/11/20 21 08/22/2022 Uterine fibroid in 04/11/2021 documented as of this encounter (statuses as of 02/10/2023) [facility] History of Past illness Narrative* Problem Noted Date Diagnosed Date Resolved Date Maternal tobacco use in first trimester 04/11/2021 08/22/2022 Uterine fibroid in 04/11/2021 08/22/2022 documented as of this encounter (statuses as of 08/07/2023) [facility] History of Past illness Narrative* Problem Noted Date Diagnosed Date Resolved Date Maternal tobacco use in first trimester 04/11/2021 08/22/2022 Uterine fibroid in 04/11/2021 08/22/2022 documented as of this encounter (statuses as of 01/05/2024) [facility] History of Past illness Narrative* Problem Noted Date Diagnosed Date Resolved Date Maternal tobacco use in first trimester 04/11/2021 08/22/2022 Uterine fibroid in 04/11/2021 08/22/2022 documented as of this encounter (statuses as of 01/06/2024) [facility] History of Present illness Narrative* Chloe Don MD - 12/13/2020 2:57 PM EST DATE OF SERVICE: 12/13/2020 SUBJECTIVE: An 19-year-old female with chief complaint of sore throat. Symptoms have been present for the past 2 days. Hurts her to swallow. Her ears feel clogged. She said the right ear is ringing. She has not been coughing or having any fevers, chills, body aches, loss of taste or smell. Has been taking TheraFlu. A history of ADD. She is on Wellbutrin, vitamin D, metoprolol. No allergies. Currently uses a vape. No alcohol use. No family history. PHYSICAL EXAMINATION: Vital signs are within normal limits, except for a respiratory rate of 24. She is in no acute distress. Tympanic membranes intact. She has nasal turbinate hypertrophy. Oral mucosa is moist. Tonsillar hypertrophy 2+ plus erythema. Shotty anterior and cervical lymph nodes. Heart is regular rate and rhythm. No murmurs, rubs, or gallops. Lungs are clear to auscultation bilaterally. TESTS: Rapid strep was negative. ASSESSMENT: Pharyngitis, likely viral. PLAN: Lidocaine 2% viscous solution 10 mL to gargle and spit every 3 hours. Sudafed 12-Hour extended-release tablets to take twice daily as needed. Chloe Dno MD /[id number] [facility] File#: [id number] END OF DOCUMENT / CHANGE LOG FOLLOWS Last Edited By Elec. Signed By Chloe Don MD #Chloe Fuller MD #RIGO on 12/17/2020 10:20 ET on 12/17/2020 10:20 ET Revision Number - 2 ^^^ Verified/Reviewed by 12/17/20 1020 RIGO [facility] PATIENT NAME: JYOTI UJNG [address] [facility] [address] [place] MEDICAL REC #: [id number] [place] [address] [place] STATC[facility] REPORT STATCARE PHYSICIAN [facility] No data available for this section [facility] Evaluation + Plan note Future Appointments Appointment Date:10/26/2023 07:30:00 AM Scheduled Provider:SHANNAN PASTRANA DO Location:[facility] Appointment Type:PC Wellness Annual w/Labs [facility] Evaluation note* Diagnosis Encounter for counseling regarding contraception- Primary Encounter for initial prescription of contraceptive pills General counseling for prescription of oral contraceptives documented [facility] this encounter [facility] noteNo assessment information available[facility]* Diagnosis Onset Date Resolution Status Encounter for gynecological examination with Papanicolaou smear of cervix acute History of recurrent miscarriages acute Encounter to establish care noneactive [facility] Work Phone: Hospital Discharge instructions Additional Instructions Return if thoughts of self-harm return. Follow-up with your therapist and your primary care physician.[facility] Work Phone: Hospital Discharge instructions Additional Instructions Keep trying to get back to your hometown of [place]. Treat this is a normal menstrual flow for now. Return or go to [facility] if you develop increasing symptoms of excessive bleeding especially if associated with abdominal pain or back pain or feeling as if you could pass out.[facility] Work Phone: Hospital Discharge instructions No data available for this section [facility] Progress note No data available for this section [facility] Summary Purpose Family History No Family History Records Found Relationship Condition Age at Onset Recorded Date/T emetreio grandmother Diabetes mellitus Unknown Malignant neoplasm of breast Unknown mother Malignant neoplasm of skin Unknown Advance Directives No Advanced Directives Records FoundNo Advanced Directives Records FoundNo Advanced Directives Records FoundNo Advanced Directives Records FoundNo Advanced Directives Records FoundNo Advanced Directives Records FoundNo Advanced Directives Records FoundNo Advanced Directives Records FoundNo Advanced Directives Records Found Health Concerns Infection Onset Date Last Indicated Resolved Time COVID-19 Rule-Out 10/08/2021 10/08/2021 10/08/2021 10:50 PM EST COVID-19 Confirmed 10/08/2021 10/08/2021 12/21/202 1 8:51 PM EST Reason for Referral Specialty Diagnoses / Procedures Referred By Trudi t Referred To Contact Rex Hinojosa DO [address] [place] [address] Referral ID Status Reason Start Date Expiration Date Visits Re quested Visits Authorized [id number] Closed 1 1 Chief Complaint and Reason for Visit Chief Complaint suicidal ideation Chief Complaint suicidal ideation PCOS Routine physicl lab exam Chief Complaint suicidal ideation PCOS Routine physicl lab exam Pelvic Pain Reason for Visit Encounter for gyneco logical examination with Papanicolaou smear of cervix History of recurrent miscarriages Encounter to establish care Chief Complaint suicidal ideation PCOS Routine physicl lab exam Pelvic Pain , bleeding 12 hours Reason for Visit Encounter for gyneco logical examination with Papanicolaou smear of cervix History of recurrent miscarriages Encounter to establish care Additional Source Comments INFORMATION SOURCE (unrecogn ized section and content) DATE CREATED AUTHOR AUTHOR'S ORGANIZ ATION 01/17/2022 [facility] DATE CREATED AUTHOR AUTHOR'S ORGANIZ ATION 03/07/2023 [facility] DATE CREATED AUTHOR AUTHOR'S ORGANIZ ATION 05/15/2023 [facility] DATE CREATED AUTHOR AUTHOR'S ORGANIZ ATION 08/12/2023 [facility] DATE CREATED AUTHOR AUTHOR'S ORGANIZ ATION 09/10/2023 [facility] DATE CREATED AUTHOR AUTHOR'S ORGANIZ ATION 11/24/2023 [facility] DATE CREATED AUTHOR AUTHOR'S ORGANIZ ATION 11/30/2023 [facility] ([place] DATE CREATED AUTHOR AUTHOR'S ORGANIZ ATION 01/08/2024 [facility] Source Comments (unrecognize d section and content) In the event this informatio n is protected by the Federal Confidentiality of Alcohol and Drug Abuse Patient Records regulations: The Federal rules restrict any use of the information to criminally investigate or prosecute any alcohol or drug abuse patient.[facility] the event this information is protected by the Federal Confidentiality of Alcohol and Drug Abuse Patient Records regulations: The Federal rules restrict any use of the information to criminally investigate or prosecute any alcohol or drug abuse patient.[facility] HospitalIn the event this information is protected by the Federal Confidentiality of Alcohol and Drug Abuse Patient Records regulations: The Federal rules restrict any use of the information to criminally investigate or prosecute any alcohol or drug abuse patient.[facility] HospitalIn the event this information is protected by the Federal Confidentiality of Alcohol and Drug Abuse Patient Records regulations: The Federal rules restrict any use of the information to criminally investigate or prosecute any alcohol or drug abuse patient.[facility] HospitalIn the event this information is protected by the Federal Confidentiality of Alcohol and Drug Abuse Patient Records regulations: The Federal rules restrict any use of the information to criminally investigate or prosecute any alcohol or drug abuse patient.[facility] HospitalIn the event this information is protected by the Federal Confidentiality of Alcohol and Drug Abuse Patient Records regulations: The Federal rules restrict any use of the information to criminally investigate or prosecute any alcohol or drug abuse patient.[facility] HospitalIn the event this information is protected by the Federal Confidentiality of Alcohol and Drug Abuse Patient Records regulations: The Federal rules restrict any use of the information to criminally investigate or prosecute any alcohol or drug abuse patient.[facility] HospitalIn the event this information is protected by the Federal Confidentiality of Alcohol and Drug Abuse Patient Records regulations: The Federal rules restrict any use of the information to criminally investigate or prosecute any alcohol or drug abuse patient.[facility] HospitalIn the event this information is protected by the Federal Confidentiality of Alcohol and Drug Abuse Patient Records regulations: The Federal rules restrict any use of the information to criminally investigate or prosecute any alcohol or drug abuse patient.[facility] HospitalIn the event this information is protected by the Federal Confidentiality of Alcohol and Drug Abuse Patient Records regulations: The Federal rules restrict any use of the information to criminally investigate or prosecute any alcohol or drug abuse patient.[facility] HospitalIn the event this information is protected by the Federal Confidentiality of Alcohol and Drug Abuse Patient Records regulations: The Federal rules restrict any use of the information to criminally investigate or prosecute any alcohol or drug abuse patient.[facility] HospitalIn the event this information is protected by the Federal Confidentiality of Alcohol and Drug Abuse Patient Records regulations: The Federal rules restrict any use of the information to criminally investigate or prosecute any alcohol or drug abuse patient.[facility] HospitalIn the event this information is protected by the Federal Confidentiality of Alcohol and Drug Abuse Patient Records regulations: The Federal rules restrict any use of the information to criminally investigate or prosecute any alcohol or drug abuse patient.[facility] HospitalIn the event this information is protected by the Federal Confidentiality of Alcohol and Drug Abuse Patient Records regulations: The Federal rules restrict any use of the information to criminally investigate or prosecute any alcohol or drug abuse patient.[facility] HospitalIn the event this information is protected by the Federal Confidentiality of Alcohol and Drug Abuse Patient Records regulations: The Federal rules restrict any use of the information to criminally investigate or prosecute any alcohol or drug abuse patient.[facility] HospitalIn the event this information is protected by the Federal Confidentiality of Alcohol and Drug Abuse Patient Records regulations: The Federal rules restrict any use of the information to criminally investigate or prosecute any alcohol or drug abuse patient.[facility] HospitalIn the event this information is protected by the Federal Confidentiality of Alcohol and Drug Abuse Patient Records regulations: The Federal rules restrict any use of the information to criminally investigate or prosecute any alcohol or drug abuse patient.[facility] HospitalIn the event this information is protected by the Federal Confidentiality of Alcohol and Drug Abuse Patient Records regulations: The Federal rules restrict any use of the information to criminally investigate or prosecute any alcohol or drug abuse patient.[facility] Reason for Visit (unrecogniz ed section and content) Reason Comments Contraception Previous use of OCPs - wants pills again Reason Comments Ob Delivery Note Reason Comments Letter Care Teams (unrecognized sec tion and content) Team Status: Inactive Member Role Status Dates Martin Mckenna MD Emergency Provider Active No Provider Primary Care Provider Active Team Status: Active Member Role Status Dates Vivi Joseph CNP Attending Provider Active No Provider Primary Care Provider Active Team Status: Active Member Role Status Dates No Provider Primary Care Provider Active Vivi Joseph CNP Attending Provider Active Team Status: Inactive Member Role Status Dates No Provider Primary Care Provider Active Vivi Joseph CNP Attending Provider Active Team Status: Inactive Member Role Status Dates No Provider Primary Care Provider Active Alex Lai MD Emergency Provider Active Goals (unrecognized section and content) Goals may be documented in a n alternate section FOR RECORDS PERTAINING TO PATIENTS WHO ARE OR HAVE BEEN ENROLLED IN A CHEMICAL DEPENDENCY/SUBSTANCEABUSE PROGRAM, SOME INFORMATION MAY BE OMITTED. This clinical summary was aggregated from multiple sources. Caution should be exercised in using it in the provision of clinical care. This summary normalizes information from multiple sources, and as a consequence, information in this document may materially change the coding, format and clinical context of patient data. In addition, data may be omitted in some cases. CLINICAL DECISIONS SHOULD BE BASED ON THE PRIMARY CLINICAL RECORDS. [facility]. provides no warranty or guarantee of the accuracy or completeness of information in this document.
--- NOTE | 2024-01-17 22:31 | EDS_ITS ---
HPI <Alexus Mata RN - Last Filed: 01/17/24 23:45> HPI - Female History of Present Illness Chief Complaint: Female C/O Detail of Chief Complaint: Clear vaginal discharge Informant: patient Pain Pain: Negative for Pelvic Pain, Vulvar Pain or Vaginal Pain Context: Gradual Onset Timing: Continuous Quality: Negative for Cramping, Aching, Burning, Sharp, Stabbing or Dull Current Severity: Mild Maximum Severity: Mild Bleeding Issue: Negative for Vaginal bleeding, Passing clots or Passing tissue Vaginal Discharge Onset: Days (4) Quality: Positive for - (Clear. Patient reports odor is similar to after her regular menses.) Severity: - (Patient thinks discharge is more than normal.) Associated Symptoms Associated Symptoms: Negative for Dysuria, Frequency, Urgency or Hematuria Sexually: Positive for Active P: 0 Narrative Narrative: Patient is a 23-year-old female who presents to the ED with clear vaginal discharge associated with a strong odor. She reports she vaginally delivered a premature baby on 01/05/2024. She had premature rupture of membranes and due to gestational age, the baby was not viable. Patient reports her vaginal bleeding following delivery had ceased 4 days prior to arrival. She reports this clear discharge is similar to when she was . She states it is malodorous and similar to to the odor following a regular menses. She does have a follow-up appointment scheduled in 2 days with an OB from [facility]. She denies any change in sexual partners. She denies vaginal itching or burning. She d enies dysuria, hematuria, and urinary frequency. She also reports recent migraines in the left temporal area radiating to behind her left eye. She reports these occur at night and describes them as a pressure. She reports the pain 6/10 when they occur. She reports they are in intermittent and associated with dizziness, lasting approximately 2 minutes. She denies photosensitivity and nausea associated with the headaches. She denies taking medications for the headache. 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 Patient denies any current medications. Prior similar symptoms: No Recent Illness/Hospitalization: Yes PFSH <Alexus Mata RN - Last Filed: 01/17/24 23:45> PFSH Medical History Anxiety Asthma Bipolar disorder Depression Migraines Miscarriage Smoker Home Medications docosahexaenoic acid 200 mg capsule ( DHA) 200 mg PO DAILY 12/24/23 [History Last Taken Unknown] Allergy/AdvReac Type Severity Reaction Status Date / Time No Known Allergies Allergy Verified 01/17/24 20:57 Surgical History H/O adenoidectomy Social History household members: family Smoking Status: Current some day smoker tobacco type: e-cigarettes ROS <Alexus Mata RN - Last Filed: 01/17/24 23:45> ROS ED Constitutional Constitutional ED: Denies chills, fever(s) or sweats Eyes Eyes: Denies blurry vision, change in vision or diplopia ENT ENT ED: Denies ear pain, rhinorrhea or sore throat Cardiovascular Cardiovascular: Denies chest pain, palpitations or racing heartbeat Respiratory/Chest Respiratory/Chest: Denies cough or dyspnea Gastrointestinal Gastrointestinal: Denies abdominal pain, constipation, diarrhea, nausea or vomiting Genitourinary Genitourinary ED: Denies dysuria, hematuria or urinary frequency Musculoskeletal Musculoskeletal: Denies arthralgias or myalgias Integumentary Denies rash Neurologic Neurologic: Reports headache(s); Denies paresthesias or weakness Psychiatric Psychiatric: Denies anxiety or depression Hematologic/Lymphatic Hematologic/Lymphatic: Denies easy bleeding or easy bruising EXAM <Alexus Mata RN - Last Filed: 01/17/24 23:45> Physical Exam Narrative Exam Narrative: Patient awake, alert, cooperative. Male visitor at bedside. Const Vital Signs: 01/17/24 20:54 01/17/24 23:52 Temperature 98.1 F 97.8 F Temperature Source Temporal Pulse Rate 89 80 Respiratory Rate 16 14 Blood Pressure 138/96 H 129/93 H Blood Pressure Mean 110 105 Pulse Ox 97 99 Oxygen Delivery Method Room Air Positive well nourished and well developed General Appearance ED: well developed and NAD HEENT Reports moist mucous membranes Eyes PERRL and EOMs intact bilaterally Neck no lymphadenopathy, supple and no JVD Chest Wall inspection of chest normal and palpation of chest normal Resp normal respiratory effort and clear to auscultation bilaterally Auscultation: Negative for rales, rhonchi or wheezes Cardio regular rate, regular rhythm, S1 normal heart sound and no murmurs GI normal to inspection, nondistended, normoactive bowel sounds, soft to palpation and non-tender Auscultation: normoactive bowel sounds Back/Spine no CVA tenderness Extremity normal to inspection and full ROM General Extremety ED: Negative for edema General Extremity: Negative for edema Neuro oriented x3 Sensorium / Orientation: alert Motor Exam: strength 5/5 throughout Psych mental status grossly normal Skin no rashes or lesions noted <Dr. Amie Hurtado MD - Last Filed: 01/18/24 00:10> Physical Exam Const Vital Signs: 01/17/24 20:54 01/17/24 23:52 Temperature 98.1 F 97.8 F Temperature Source Temporal Pulse Rate 89 80 Respiratory Rate 16 14 Blood Pressure 138/96 H 129/93 H Blood Pressure Mean 110 105 Pulse Ox 97 99 Oxygen Delivery Method Room Air MDM <Alexus Mata RN - Last Filed: 01/17/24 23:45> MDM MDM Narrative Medical decision making narrative: IV line initiated. Labwork obtained to evaluate for leukocytosis, anemia, and electrolyte derangement. Ultrasound ordered to evaluate for retained products of conception. History & Record Review Discussion w/independent historian: Patient Lab Data Attestation: I reviewed the patient's lab results. Labs: Laboratory Results - last 24 hr 01/17/24 22:29 WBC 8.6 RBC 4.46 Hgb 12.4 Hct 40.0 MCV 89.7 MCH 27.8 MCHC 31.0 L RDW Std Deviation 44.2 H RDW Coeff of José 13.5 Plt Count 444 MPV 9.8 Immature Gran % (Auto) 0.200 Neut % (Auto) 50.0 Lymph % (Auto) 38.3 Taliaferro % (Auto) 9.3 Eos % (Auto) 1.7 Baso % (Auto) 0.5 Absolute Neuts (auto) 4.3 Absolute Lymphs (auto) 3.30 Nucleated RBC % 0 Sodium 141 Potassium 3.9 Chloride 108 H Carbon Dioxide 27.0 Anion Gap 6 BUN 13 Creatinine 0.74 Estim Creat Clear Calc 123.53 Est GFR (MDRD) Af Amer 126 Est GFR (MDRD) Non-Af 104 BUN/Creatinine Ratio 17.5 Glucose 82 Calcium 9.3 Urine Color Yellow Urine Clarity Cloudy Urine pH 7.0 Ur Specific [place] 1.015 Urine Protein 15 H Urine Glucose (UA) Normal Urine Ketones Negative Urine Occult Blood 10 H Urine Nitrite Negative Urine Bilirubin Negative Urine Urobilinogen Normal Ur Leukocyte Esterase 100 H Urine RBC 0 SEEN Urine WBC 0-5 SEEN Ur Squamous Epith Cells 0-5 SEEN Amorphous Sediment 2+ Urine Bacteria 0 SEEN Urine Mucus 0 SEEN Radiography Diagnostic Testing: Clinical Impression(s) from Imaging Studies Transvaginal US 01/17/24 22:02 IMPRESSION: 1. Although not definitive, findings may be indicative of retained products of conception. Given the clinical history of foul-smelling discharge, endometritis is also a consideration. Follow-up as clinically indicated. 2. Debris identified within the urinary bladder. Correlate for hematuria and/or evidence of infection. Electronically Signed: Conner Patel DO at 23:24 EDT , ADDENDUM: 01/17/24 [id number] IMPRESSION: 1. Although not definitive, findings may be indicative of retained products of conception. Given the clinical history of foul-smelling discharge, endometritis is also a consideration. Follow-up as clinically indicated. 2. Debris identified within the urinary bladder. Correlate for hematuria and/or evidence of infection. N.B. : Amie Hurtado MD, confirmed on 01/17/2024 23:39:21 (ET) that the healthcare facility has received the radiology report. Electronically Signed: Conner Patel DO at 23:24 EDT , Differential Diagnosis Differential Diagnosis: Retained products of conception Differential Diagnosis: Normal physiologic discharge Differential Diagnosis: Migraine Management Discussion w/another healthcare provider: Other (Dr. Hurtado, ED provider) Treatment and Re-Evaluation Narrative: Lab work and imaging reviewed. CBC shows normal white count of 8.6 with neutrophils 50%, hemoglobin 12.4, and platelets 444. Chemistry is unremarkable. Urinalysis shows 15 protein, 10 occult blood, and 100 leukocytes. No nitrites, WBCs or bacteria seen in the urine. Transvaginal ultrasound shows possibility of retained products of conception or endometritis. Pelvic exam completed by Dr. Hurtado showed normal physiologic discharge, nontender. Lab work and imaging discussed with patient. Patient to be discharged home and follow-up with OB at [facility] in 2 days. Patient to return to ED for fever , increased pain, or increased discharge Patient agreeable with plan <Dr. Amie Hurtado MD - Last Filed: 01/18/24 00:10> [facility] Lab Data Labs: Laboratory Results - last 24 hr 01/17/24 22:29 WBC 8.6 RBC 4.46 Hgb 12.4 Hct 40.0 MCV 89.7 MCH 27.8 MCHC 31.0 L RDW Std Deviation 44.2 H RDW Coeff of José 13.5 Plt Count 444 MPV 9.8 Immature Gran % (Auto) 0.200 Neut % (Auto) 50.0 Lymph % (Auto) 38.3 [place]ferro % (Auto) 9.3 Eos % (Auto) 1.7 Baso % (Auto) 0.5 Absolute Neuts (auto) 4.3 Absolute Lymphs (auto) 3.30 Nucleated RBC % 0 Sodium 141 Potassium 3.9 Chloride 108 H Carbon Dioxide 27.0 Anion Gap 6 BUN 13 Creatinine 0.74 Estim Creat Clear Calc 123.53 Est GFR (MDRD) Af Amer 126 Est GFR (MDRD) Non-Af 104 BUN/Creatinine Ratio 17.5 Glucose 82 Calcium 9.3 Urine Color Yellow Urine Clarity Cloudy Urine pH 7.0 Ur Specific [place] 1.015 Urine Protein 15 H Urine Glucose (UA) Normal Urine Ketones Negative Urine Occult Blood 10 H Urine Nitrite Negative Urine Bilirubin Negative Urine Urobilinogen Normal Ur Leukocyte Esterase 100 H Urine RBC 0 SEEN Urine WBC 0-5 SEEN Ur Squamous Epith Cells 0-5 SEEN Amorphous Sediment 2+ Urine Bacteria 0 SEEN Urine Mucus 0 SEEN Radiography Diagnostic Testing: Clinical Impression(s) from Imaging Studies Transvaginal US 01/17/24 22:02 IMPRESSION: 1. Although not definitive, findings may be indicative of retained products of conception. Given the clinical history of foul-smelling discharge, endometritis is also a consideration. Follow-up as clinically indicated. 2. Debris identified within the urinary bladder. Correlate for hematuria and/or evidence of infection. Electronically Signed: Conner Jarquin AmandaDO at 23:24 EDT , ADDENDUM: 01/17/24 [id number] IMPRESSION: 1. Although not definitive, findings may be indicative of retained products of conception. Given the clinical history of foul-smelling discharge, endometritis is also a consideration. Follow-up as clinically indicated. 2. Debris identified within the urinary bladder. Correlate for hematuria and/or evidence of infection. N.B. : Amie Hurtado MD, confirmed on 01/17/2024 23:39:21 (ET) that the healthcare facility has received the radiology report. Electronically Signed: Conner SantiagoKelly Patel DO at 23:24 EDT , Treatment and Re-Evaluation Narrative: Lab work and imaging reviewed. CBC shows normal white count of 8.6 with neutrophils 50%, hemoglobin 12.4, and platelets 444. Chemistry is unremarkable. Urinalysis shows 15 protein, 10 occult blood, and 100 leukocytes. No nitrites, WBCs or bacteria seen in the urine. Transvaginal ultrasound shows possibility of retained products of conception or endometritis. Pelvic exam completed by Dr. Hurtado showed normal physiologic discharge, nontender. Lab work and imaging discussed with patient. Patient to be discharged home and follow-up with OB at [facility] in 2 days. Patient to return to ED for fever , increased pain, or increased discharge Patient agreeable with plan Patient seen and evaluated with [facility] student. I personally interviewed and examined the patient. I was involved in all aspects of patient's orders, interpretation of results, and treatment. Patient presents secondary to vaginal discharge. She delivered a 17-week stillborn on January 05. She states has been having discharge and bleeding since that time, but stopped bleeding 4 days ago. She reports continued discharge and was concerned about a possible infection. She does not have significant cramping or pain. She does not have fever or chills. She is scheduled to see her [facility]GRAM DEVELOPER in [place] in 2 days. This will be a first-time visit to this particular doctor and patient was seen here by the [facility] physician when she had her stillborn. Patient sitting upright in bed no acute distress. Nontoxic-appearing. Head and neck examination unremarkable. Heart is regular rate and rhythm. Lung sounds are clear. Abdomen is soft with no focal tenderness. Pelvic examination is performed. She has mild amount of physiologic discharge. No bleeding noted. Cervix is closed. She has no midline or adnexal tenderness on exam. CBC was a white count of 8.6 with a hemoglobin of 12.4. Chemistry studies are unremarkable. Urinalysis reveals 2+ sediment with 0 bacteria. 0-5 white cells and no nitrites. Pelvic ultrasound was performed. Impression states that although not definitive, findings may be indicative of retained products of conception. The endometrium is heterogeneous and thickened with mild increased vascular flow. There is no uterine mass. The endometrial stripe measures 2.3 cm in thickness. With patient having no significant tenderness on exam, I do not believe she has retained products. She has follow-up appointment scheduled in less than 48 hours. She was advised to return for fever, increased discharge, abdominal pain. She voices understanding and agreement. Discharge Plan Triage Chief Complaint: Female C/O ED Provider: Amie Hurtado Dx/Rx/DC Orders Clinical Impression: Vaginal discharge Prescriptions: No Action DHA 200 mg capsule 200 mg PO DAILY Primary Care Provider: Heather Brooks Primary Referrals: [facility] Primary [Primary Care Provider] - Activity Restrictions/Additional Instructions: Your workup does not reveal any obvious source of infection. Please follow-up with [facility]GRAM DEVELOPER on Wednesday as scheduled. Return for fever, worsened discharge, abdominal pain. Disposition Disposition: Home, Self Care Discharge Date/Time: 01/17/24 23:53
[2024-01-17 22:35] LABS: Bacteria 0 SEEN /hpf (None Seen); Mucous, Urine 0 SEEN /hpf (<or=2+); Red Blood Cells-Urine 0 SEEN /hpf (0-5)
[2024-01-17 22:36] LABS: Absolute Neutrophil Count 4.3 X10^3/uL (2.0-7.7); Basophil# 0.04 X10^3/uL; Basophil% 0.5 % (0-1); Eosinophil# 0.15 X10^3/uL; Eosinophils% 1.7 % (0-5); Hemoglobin 12.4 g/dL (12.0-15.0); Lymphocyte % 38.3 % (19-41); Mean Corpuscular Hgb 27.8 pg (27.0-32.0); Mean Corpuscular Volume 89.7 fL (81-99); Mean Platelet Vol. 9.8 fl (6.2-12.0); Monocyte% 9.3 % (0-10); NRBC Flagged by Analyzer 0 % (0-5); Neutrophil # 4.31 X10^3/uL (2.7-7.7); Platelet Count 444 K/mm3 (150-450); RBC Distribution Width CV 13.5 % (11.6-14.6); RBC Distribution Width SD 44.2 fl (35.1-43.9); Red Blood Count 4.46 M/mm3 (4.2-5.4); White Blood Count 8.6 K/mm3 (4.4-11.0)
[2024-01-17 22:37] LABS: Color, Urine Yellow (Yellow); Glucose, Dipstick Normal (Normal); Ketone-Dipstick Negative (Negative); Leukocyte Esterase-Dipstick 100 /ul (Negative); Nitrite-Dipstick Negative (Negative); Occult Blood-Urine 10 /ul (Negative); Protein-Dipstick 15 mg/dl (Negative); Specific Gravity, Urine 1.015 (1.002-1.030); Urine Bilirubin Dipstick Negative (Negative); Urine Clarity Cloudy (Clear); Urine Urobilinogen Normal (Normal)
[2024-01-17 22:50] LABS: Amorphous Sediment 2+; Squamous Epithelial Cells - UA 0-5 SEEN /hpf (5-10); White Blood Cells 0-5 SEEN /hpf (0-5)
[2024-01-17 22:53] LABS: Anion Gap 6 (5-15); BUN 13 mg/dL (7-18); BUN/Creat Ratio 17.5 RATIO (10-20); Calcium,Total 9.3 mg/dL (8.5-10.1); Chloride 108 mmol/L (98-107); Creatinine, Serum 0.74 mg/dL (0.55-1.02); EST Glomerular Filtration Rate 104 mL/min (>60); Est Glom Filt Rate - Afr Amer 126 mL/min (>60); Estimated Creatinine Clearance 123.53 ml/min; Glucose 82 mg/dL (74-106); Potassium 3.9 mmol/L (3.5-5.1); Sodium Level 141 mmol/L (136-145)
[2024-01-17 23:52] VITALS: BP 129/93; PULSE 80; RESP 14; TEMP 36.6; O2SAT 99
== END 2024-01-17 23:53 | disposition home or self-care (01) ==
PROVIDERS: Emergency Provider Emergency Medicine; Visit Provider Emergency Medicine
DX: N89.8 Other specified noninflammatory disorders of vagina (principal); F17.290 Nicotine dependence, other tobacco product, uncomplicated; J45.909 Unspecified asthma, uncomplicated; R51.9 Headache, unspecified
CPT/HCPCS: 76830; 80048; 81001; 85025; 99283